=== PATIENT | female | born 1985 | race Caucasian/White ===

== ENCOUNTER 2024-04-19 11:42 | Emergency (ER) | payer OTHER, SELFPAY ==
--- NOTE | 2024-04-19 11:46 | ED.URI ---
HPI - URI/Sore Throat General Chief Complaint: Upper Respiratory Infection Stated Complaint: throat pain Time Seen by Provider: 04/19/24 11:47 Source: patient Mode of arrival: ambulatory Limitations: no limitations History of Present Illness HPI Narrative: Jesusita is a 38-year-old female patient presenting to the clinic today with complaints of a sore swollen area to the left side of her anterior neck. She reports symptoms have been going on for approximately 2-3 days. No fevers, chills, or body aches. States that it seems as though the pain is radiating into her jaw to the left ear. No history of TMJ. Denies any dental pain. MD elicited complaint: sore throat and nasal congestion Related Data Home Medications ?Medication ?Instructions ?Recorded ?Confirmed ?Last Taken ?Type Bovey bergamia PO 02/18/24 02/18/24 Unknown History Full Adarsh Fish OIl PO 02/18/24 02/18/24 Unknown History Sibiotica K-97 PO 02/18/24 02/18/24 Unknown History Zoyava chloe-inositol/ D-chiro PO 02/18/24 02/18/24 Unknown History inositol cholecalciferol (vitamin D3) 25 25 mcg PO DAILY 02/18/24 04/19/24 Unknown History mcg (1,000 unit) capsule cimicifuga racemosa See Rx Instructions PO .COMPLEX 02/18/24 02/18/24 Unknown History levothyroxine 25 mcg tablet 25 mcg PO DAILY 02/18/24 04/19/24 Unknown History loratadine 10 mg tablet (Claritin) 10 mg PO DAILY 02/18/24 04/19/24 Unknown History melatonin 3 mg capsule 3 mg PO QHS 02/18/24 04/19/24 Unknown History multivitamin 1 tablet PO DAILY 02/18/24 04/19/24 Unknown History bupropion HCl 150 mg 24 hr tablet, 150 mg PO DAILY 04/19/24 04/19/24 Unknown History extended release Allergies Allergy/AdvReac Type Severity Reaction Status Date / Time metformin Allergy Severe Diarrhea Verified 04/19/24 11:48 Review of Systems Review of Systems: Pertinent positives per HPI. Patient denies any fever, chills, rash, headache, visual changes, dizziness, cough, shortness of breath, chest pain, palpitations, nausea, vomiting, diarrhea, constipation, abdominal pain, or any urinary issues. PMFSH Past Medical History Medical History Celiac disease Depression with suicidal ideation ADHD Polycystic ovarian disease Chronic post-traumatic stress disorder (PTSD) Headache, migraine, intractable Asthma Anxiety Anemia Allergies Surgical History Surgical History [place] teeth removed H/O colonoscopy 2003 Family History Family History Mother Depression Anxiety Heart problem Father Asthma Diabetes mellitus Sibling Asthma Grandparent Anxiety Depression Heart problem Cancer Grandparent Diabetes mellitus Grandparent Diabetes mellitus Social History Social History Smoking status: Never smoker Second hand tobacco smoke exposure: Yes Alcohol intake: current Alcohol use details: rarely Substance use: never Do You Feel Safe in your Home?: Yes Lack of Transportation: No Lack of Food: Never True Current Housing: I Have Housing Concerned About Future Housing: No Difficulty Paying Gas/Electric Bills: No Difficulty Paying for Meds: No Currently Unemployed: No Education: Bachelor's Degree Difficulty w/ Childcare or Family Care: No Living arrangements: with family Occupation/Education: occupation Gender identity (if verbalized by the patient): Female Sexual Orientation (if Verbalized by the Patient): Straight or Heterosexual Agree to blood products: Yes Comments At the time of my signature, I reviewed and agree with the nursing past medical, surgical, social, and family history. There is no relevant family history pertinent to the patient complaint. Exam Narrative: General: Well-developed, morbidly obese, in no apparent distress Head: Normocephalic, atraumatic Eyes: Pupils equally round and reactive to light bilaterally, EOM intact, sclera and conjunctive clear, no discharge, lids normal Ears: TMs intact and clear, ear canals clear, no drainage, grossly hearing normal. Nose: Nares patent, no discharge, no inflammation, no sinus tenderness. Mouth: Oral pharynx mildly red without lesions or masses, good dentition, MMM. No tenderness over the mandible-no swelling, no tenderness over the TMJ-no swelling or crepitus Neck: Supple, trachea midline, left enlargement of anterior with cervical nodes with tenderness to palpation, no thyroid masses or goiter palpable. Cardio: Regular rate and rhythm, s1 and s2 normal, no murmur appreciated. Resp: Clear to auscultation bilaterally, no rhonchi, rales, wheezing or rubs Course Course Emergency Course: Portions of this record may have been created with voice recognition software. Level of Care: Express Care Visit Vital Signs Vital signs: Vital Signs Temperature 36.2 C L 04/19/24 11:52 Pulse Rate 68 04/19/24 11:52 Respiratory Rate 16 04/19/24 11:52 Blood Pressure 119/68 04/19/24 11:52 Pulse Oximetry 99 04/19/24 11:52 Oxygen Delivery Room Air 04/19/24 11:52 Temperature 36.2 C L 04/19/24 11:52 Pulse Rate 68 04/19/24 11:52 Respiratory Rate 16 04/19/24 11:52 Blood Pressure 119/68 04/19/24 11:52 Pulse Oximetry 99 04/19/24 11:52 Oxygen Delivery Room Air 04/19/24 11:52 Vital signs reviewed MDM - URI/Sore Throat MDM Narrative Medical decision making narrative: At the time of visit patient is resting comfortably on the exam table. Patient appears to be nontoxic. Labs: Strep test was obtained and negative in the clinic today. We will send strep for culture. Plan: I suspect patient has acute left lymphadenopathy of the anterior cervical region. No sign of dental infection, ear infection, and strep test was negative. We will send strep for culture. She denies any fevers, chills, or body aches. Supportive measures were discussed with the patient and they voiced understanding discharge instructions and agrees to treatment plan. Return precautions reviewed Differential Diagnosis Differential diagnosis: Likely upper respiratory infection, otitis media, sinusitis, viral infection, bronchitis, influenza, pharyngitis and other (COVID) Lab Data Labs: Lab Results 04/19/24 Range/Units 12:08 POC Grp A Strep Screen Negative (Negative) Discharge Plan Discharge Clinical Impression: Lymphadenopathy of left cervical region Patient Disposition: Home, Self-Care Condition: Stable Instructions: Antibiotic Form, Lymphadenopathy (ED) Additional Instructions: Strep test was negative in the clinic today. We will send strep for culture. Increase fluids and stay well hydrated Tylenol/motrin for pain/fever May apply cool or warm compresses affected area to help alleviate pain Go to the ED if you develop a worsening in your condition- high fever not controlled by Tylenol or Motrin, dehydration, weakness, lethargy, worsening of swelling, increase in pain, shortness of breath, or chest pain. Follow up with your PCP in 3-5 days if symptoms persist. Patient Language: Somali Prescriptions: No Action bupropion HCl 150 mg tablet extended release 24 hr 150 mg PO DAILY levothyroxine 25 mcg tablet 25 mcg PO DAILY loratadine [Claritin] 10 mg tablet 10 mg PO DAILY cimicifuga racemosa See Rx Instructions PO .COMPLEX Rx Instructions: 300mg PRN orally; PCOS & Sugar Cravings multivitamin Tablet 1 tablet PO DAILY Bovey bergamia PO Rx Instructions: bergamot 500mg, BioPerine 2.5mg for PCOS & Insulin Resistance with water or herbal tea at dinner time. Full Adarsh Fish OIl PO Rx Instructions: 2500mg QHS melatonin 3 mg capsule 3 mg PO QHS Sibiotica K-97 PO Rx Instructions: 15 billion x 2 tabs daily Zoyava chloe-inositol/ D-chiro inositol PO Rx Instructions: 750mg/50mg cholecalciferol (vitamin D3) 25 mcg (1,000 unit) capsule 25 mcg PO DAILY montelukast 10 mg tablet See Rx Instructions .ROUTE .COMPLEX Qty: 30 0RF Dose Instruction: TAKE 1 TABLET BY MOUTH DAILY Rx Instructions: TAKE 1 TABLET BY MOUTH DAILY Follow-up/Referrals: Alexandra Kaur NURSE STAFF INDUSTRIAL [Primary Care Provider] - Time of Disposition: 12:10 Quality NIHSS Nursing Documentation ED NIHSS nursing documentation: reviewed/agree
[2024-04-19 11:52] VITALS: BP 119/68; PULSE 68; RESP 16; TEMP 36.2; O2SAT 99
[2024-04-19 12:10] LABS: EDSTREPNEGPOS1 Negative (Negative)
--- OUTSIDE RECORDS SUMMARY | 2024-04-26 06:45 | XMS_ITS ---
Author Organization [facility] [employer] [facility] Address [facility] [address] [facility] [address] [place] [address] Care Team Providers Care Psychiatric Orderly Name Role Phone Alexandra Kaur APN Primary Care Provider Unavailab Tremaine Brown Unavailable [phone] Medications Medication SIG (Take, Route, Frequency, Duration) Notes Start Date End Date Status Levothyroxine Sodium 25 MCG TAKE 1 TABLE T BY MOUTH DAILY BEFORE MEAL Oral for 30 Days Active Montelukast Sodium 10 MG TAKE 1 TABLET B Y MOUTH DAILY Oral for 30 Days Active buPROPion HCl ER (XL) 150 MG TAKE 1 TABL ET BY MOUTH EVERY DAY Oral Once a day for 90 days Active Multivitamin Active Albuterol Sulfate HFA 108 (90 Base) MCG/ACT INHALE 2 PUFFS BY MOUTH FOUR TIMES DAILY NEEDED FOR SHORTNESS OF BREATH Inhalation for 25 Days Active Social History Sex Assigned At : Social History Observation Description Sex Assigned At Female Encounters Encounter Location Date Provider [facility] [address] [place] [address] [address] [place] [address] 03/29/2024 Tremaine Kidd Plan Of Treatment No Information Progress Notes * DON AREVALODOB: [birth year] (38 yo F)Acc No.[id number]:03/29/2024 Patient:?DON AREVALO Provider:KIM Graves :1985???Age:38 Y???Sex:Female D ate:03/29/2024 Phone: Address:[address] [place] [address] Pcp:Alexandra Kaur APN Subjective: * Chief Complaints: * ??? * Medical History:? * Medications:?Taking buPROPio n HCl ER (XL) 150 MG Tablet Extended Release 24 Hour TAKE 1 TABLET BY MOUTH EVERY DAY Oral Once a day , Taking Multivitamin , Taking Albuterol Sulfate HFA 108 (90 Base) MCG/ACT Aerosol Solution INHALE 2 PUFFS BY MOUTH FOUR TIMES DAILY NEEDED FOR SHORTNESS OF BREATH Inhalation , Taking Levothyroxine Sodium 25 MCG Tablet TAKE 1 TABLET BY MOUTH DAILY BEFORE MEAL Oral , Taking Montelukast Sodium 10 MG Tablet TAKE 1 TABLET BY MOUTH DAILY Oral Objective: * Vitals:? Assessment: Plan: * Treatment: * Billing Information: * Visit Code:? * Procedure Codes:? * Electronic signature of KIM Thompson on 04/26/2024 at 06:45 AM FEED IN WORKER Sign off status: Pending * Provider:?KIM Rodriguez Date:?03/29 Generated for Amber zamarripa/Mohsen/Thad on:?04/26/2024 06:45 AM FEED IN WORKER
--- OUTSIDE RECORDS SUMMARY | 2024-04-26 06:46 | XMS_ITS | Patient Health Record ---
Author Organization [facility] [employer] Address [address] [facility] [address] [place] [address] Care Team Providers Care Software Qa Manager Name Role Phone Alexandra Kaur APN Primary Care Provider Unavailab Tremaine Brown Unavailable [phone] Allergies Allergen (clinical drug ingredient) Drug/Non Drug Allergy documented on EMR Reaction Allergy Type Onset Date Status Gluten glutin (uncoded) Unknown Allergy Act miguelangel metformin Metformin diarrhea Drug Allergy Active Reason For Referral No Information Medications Medication SIG (Take, Route, Frequency, Duration) [...] Inhalation for 25 Days Active Social History Tobacco Use: Social History Observation Description Date Details (start date - stop date) Never Smoker NA - NA Sex Assigned At : Social History Observation Description Sex Assigned At Female Tobacco Control (Standard) Question Answer Notes Tobacco use: Nonsmoker AUDIT-C (Standard) Question Answer Notes Points 0 Interpretation Negative Did you have a drink contain ing alcohol in the past year? Yes How often did you have six o r more drinks on one occasion in the past year? Never (0 point) How many drinks did you have on a typical day when you were drinking in the past year? 1 or 2 drinks (0 point) How often did you have a dri nk containing alcohol in the past year? Monthly or less (1 point) Problems Problem Type SNOMED Code ICD Code Onset Dates Problem Status W/U Status Risk Notes Problem 46811187 Severe episode of recurrent major depressive disorder, without psychotic features (F33.2) Active confirmed Problem 77441616 MDD (major depressive disorder), recurrent episode, moderate (F33.1) Active confirmed Problem 74737237 Anxiety (F41.9) Active confirmed Problem 7351695 Passive suicidal ideations (R45.851) Active confirmed Vital Signs Heart Rate 77 /min 02/28/2024 Blood pressure diastolic 74 mm Hg 02/28/2024 Weight-kg 116.3 kg 02/28/2024 Blood pressure systolic 113 mm Hg 02/28/2024 Weight 256.4 lbs 02/28/2024 Encounters Encounter Location Date Provider Diagnosis [employer] [address] [place] [address] 02/28/2024 Tremaine Clubb Passive suicidal ideations R45.851 ; Severe episode of recurrent major depressive disorder, without psychotic features F33.2 and Anxiety F41.9 [employer] [address] [place] [address] 03/29/2024 Tremaine Clubb Assessments Encounter Date Diagnosis (ICD Code) Assessment Notes Treatment Notes Treatment Clinical Notes Section Notes 02/28/2024 Severe episode of recurrent major depressive disorder, without psychotic features (ICD-10 - F33.2) 1. ADHD, Anxiety, and Depression - Plan: Restart bupropion 150 mg daily. Schedule a follow-up appointment in one month to assess stability. Encourage continuation of therapy sessions every 2-3 weeks with Noelle Paige at [facility] in [place], focusing on cognitive behavioral therapy. Provide crisis hotline number (418) and ensure safety plan is in place, including two people to call if experiencing suicidal thoughts. Recommend securing firearms and ammunition separately or removing them from the home temporarily. 2. PTSD with complex trauma - Plan: Encourage continuation of therapy sessions and discuss the possibility of incorporating EMDR therapy if deemed appropriate by the therapist. 02/28/2024 Passive suicidal ideations (ICD-10 - R45.851) 1. ADHD, Anxiety, and Depression - Plan: Restart bupropion 150 mg daily. Schedule a follow-up appointment in one month to assess stability. Encourage continuation of therapy sessions every 2-3 weeks with Noelle Paige [facility], focusing on cognitive behavioral therapy. Provide crisis hotline number (988) and ensure safety plan is in place, including two people to call if experiencing suicidal thoughts. Recommend securing firearms and ammunition separately or removing them from the home temporarily. 2. PTSD with complex trauma - Plan: Encourage continuation of therapy sessions and discuss the possibility of incorporating EMDR therapy if deemed appropriate by the therapist. 02/28/2024 Anxiety (ICD-10 - F41.9) 1. ADHD, Anxiety, and Depression - Plan: Restart bupropion 150 mg daily. Schedule a follow-up appointment in one month to assess stability. Encourage continuation of therapy sessions every 2-3 weeks with Noelle Paige [facility], focusing on cognitive behavioral therapy. Provide crisis hotline number (988) and ensure safety plan is in place, including two people to call if experiencing suicidal thoughts. Recommend securing firearms and ammunition separately or removing them from the home temporarily. 2. PTSD with complex trauma - Plan: Encourage continuation of therapy sessions and discuss the possibility of incorporating EMDR therapy if deemed appropriate by the therapist. 02/28/2024 Other Learning About Depression Screening material was printed Assessment and plan reviewed with patient Call for problems with medication, side effects or need for dosage change Compliance issues reviewed Discussed the risks/benefits of this medication Discussed medication side effects Return if symptoms worsen Treatment options reviewed. discussed that it can take weeks to see full therapeutic effects of psychotropic medications. discussed when to seek emergency services. discussed crisis prevention hotline 988. Learning About Depression Screening material was printed 1. ADHD, Anxiety, and Depression - Plan: Restart bupropion 150 mg daily. Schedule a follow-up appointment in one month to assess stability. Encourage continuation of therapy sessions every 2-3 weeks with Noelle Paige [facility], focusing on cognitive behavioral therapy. Provide crisis hotline number (988) and ensure safety plan is in place, including two people to call if experiencing suicidal thoughts. Recommend securing firearms and ammunition separately or removing them from the home temporarily. 2. PTSD with complex trauma - Plan: Encourage continuation of therapy sessions and discuss the possibility of incorporating EMDR therapy if deemed appropriate by the therapist. Plan Of Treatment Pending Test Test Name Order Date UDT 02/28/2024 Insurance Providers Payer Name Payer Address Payer Phone Subscriber Number Group Number Insured Name Patient Relationship to Insured Coverage Start Date Coverage End Date [facility] [address] [place] [address] [phone] [id number] DON AREVALO Self - patient is the insured Medical (General) History Medical History History ICD Code Past Psychiatric History: PTSD abdominal aortic aneurysm: No atrial fibrillation: No chronic fatigue syndrome: No essential tremor: No hyperlipidemia: Yes hypertension: No Parkinson's disease: No restless leg syndrome: No stroke: No subdural hematoma: No type 1 diabetes mellitus: No type 2 diabetes mellitus: No vitamin B12 deficiency: Yes vitamin D deficiency: Yes Polycystic Ovary Syndrome asthma - mild persistent Celiac disease Surgical History Surgery Date(Month/Year) wisdom teeth extraction 2006
--- OUTSIDE RECORDS SUMMARY | 2024-04-26 06:46 | XMS_ITS ---
Patient Encounters Created on: September 08, 2023 CatrachitaBay kendallya : 1985 Sex: Female Author Organization [facility] [employer]. Address [address] [place] [address] Social History Section No Social History Data Procedures No Procedures Data
--- OUTSIDE RECORDS SUMMARY | 2024-04-26 06:46 | XMS_ITS ---
Author Organization [facility] [address] [place] [facility] Address [employer] [address] [address] Care Team Providers Care Product/Device Technologist Name Role Phone Alexandra Kaur APN Primary Care Provider UnavailTremaine Alas Unavailable [phone] REASON FOR VISIT Appt Social History Sex Assigned At : Social History Observation Description Sex Assigned At Female Encounters Encounter Location Date Provider Diagnosis [address] [address] 03/29/2024 Tremaine Kidd Plan Of Treatment No Information Progress Notes * HANNADON VASQUEZDOB: 8 (38 yo F)Acc No.[id number]:03/29/2024 Patient:?DON AREVALO :1985???Age:38 Y???Sex:Female Phone: Address:[address] [place] [id number] * true * Date:? Generated for Catalinai dallin/Mohsen/eTransmitting on:?04/26/2024 06:45 AM TRANSPORTATION AGENT
--- OUTSIDE RECORDS SUMMARY | 2024-04-26 06:46 | XMS_ITS ---
Patient Encounters Created on: October 09, 2023 Kayce Foster : 1985 Sex: Female Author Name Sandy Tobar Address [address] [address] [facility]. Address [address] [facility] [address] [place] [address]
== END 2024-04-19 12:17 | disposition home or self-care (01) ==
PROVIDERS: Emergency Provider Nurse Practitioner Family; PCP Nurse Practitioner
DX: R59.0 Localized enlarged lymph nodes (principal); K90.0 Celiac disease; J45.909 Unspecified asthma, uncomplicated; F41.8 Other specified anxiety disorders
CPT/HCPCS: 87081; 87880; 99213; G0463

== ENCOUNTER 2024-05-06 19:14 | Emergency (ER) | payer OTHER, SELFPAY ==
--- NOTE | 2024-05-06 19:21 | ED_ITS ---
HPI - URI/Sore Throat General Chief Complaint: Upper Respiratory Infection Stated Complaint: cough Time Seen by Provider: 05/06/24 19:20 Source: patient Mode of arrival: ambulatory Limitations: no limitations History of Present Illness HPI Narrative: Patient is a 38-year-old female who presents with over 1 week of productive cough. Patient has a new foster child became them 2 weeks ago getting over RSV. Patient has been taking Sudafed Mucinex. States all those symptoms have resolved except for the cough and laryngitis. Patient has history of asthma and has having coughing fits. Patient reports loss of sleep due to coughing. Denies any fever, chills, nausea, vomiting, diarrhea. Related Data Home Medications ?Medication ?Instructions ?Recorded ?Confirmed ?Last Taken ?Type Ennis bergamia PO 02/18/24 02/18/24 Unknown History Full Adarsh Fish OIl PO 02/18/24 02/18/24 Unknown History Sibiotica K-97 PO 02/18/24 02/18/24 Unknown History Zoyava chloe-inositol/ D-chiro PO 02/18/24 02/18/24 Unknown History inositol cholecalciferol (vitamin D3) 25 25 mcg PO DAILY 02/18/24 04/19/24 Unknown History mcg (1,000 unit) capsule cimicifuga racemosa See Rx Instructions PO .COMPLEX 02/18/24 02/18/24 Unknown History levothyroxine 25 mcg tablet 25 mcg PO DAILY 02/18/24 04/19/24 Unknown History melatonin 3 mg capsule 3 mg PO QHS 02/18/24 04/19/24 Unknown History multivitamin 1 tablet PO DAILY 02/18/24 04/19/24 Unknown History bupropion HCl 150 mg 24 hr tablet, 150 mg PO DAILY 04/19/24 04/19/24 Unknown History extended release albuterol sulfate 90 mcg/actuation inhalation 05/06/24 Unknown History aerosol inhaler Allergies Allergy/AdvReac Type Severity Reaction Status Date / Time metformin AdvReac Intermediate Diarrhea Verified 05/06/24 19:25 Review of Systems Review of Systems: All systems reviewed & are unremarkable except as noted in HPI and below Constitutional: Constitutional: Denies body ache(s), Denies chills, Denies fatigue, Denies fever(s), Denies headache(s), Denies malaise and Denies weakness Eyes: Eyes: Denies blurry vision, Denies itchy eyes and Denies loss of vision ENT: Denies otalgia, Denies headache(s), Reports hoarseness, Denies nasal congestion, Denies sinus pain and Denies sore throat Cardiovascular: Cardiovascular: Denies chest pain, Denies irregular heart rhythm and Denies dyspnea Respiratory: Respiratory: Reports cough and Denies dyspnea Gastrointestinal: Gastrointestinal: Denies abdominal pain, Denies diarrhea, Denies nausea and Denies vomiting Musculoskeletal: Musculoskeletal: Denies back pain, Denies myalgias and Denies arthralgias Integumentary/Breasts: Skin/Breast: Denies pruritus and Denies rash Neurologic: Denies headache(s), Denies loss of vision and Denies weakness Psychiatric: Psychiatric: Reports no additional psychiatric complaints Endocrine: Endocrine: Denies fatigue Allergic/Immunologic: Allergic/Immunologic: Denies itchy eyes PMFSH Past Medical History Medical History Celiac disease Depression with suicidal ideation ADHD Polycystic ovarian disease Chronic post-traumatic stress disorder (PTSD) Headache, migraine, intractable Asthma Anxiety Anemia Allergies Surgical History Surgical History [place] teeth removed H/O colonoscopy 2003 Family History Family History Mother Depression Anxiety Heart problem Father Asthma Diabetes mellitus Sibling Asthma Grandparent Anxiety Depression Heart problem Cancer Grandparent Diabetes mellitus Grandparent Diabetes mellitus Social History Social History Smoking status: Never smoker Second hand tobacco smoke exposure: Yes Alcohol intake: current Alcohol use details: rarely Substance use: never Do You Feel Safe in your Home?: Yes Lack of Transportation: No Lack of Food: Never True Current Housing: I Have Housing Concerned About Future Housing: No Difficulty Paying Gas/Electric Bills: No Difficulty Paying for Meds: No Currently Unemployed: No Education: Bachelor's Degree Difficulty w/ Childcare or Family Care: No Living arrangements: with family Occupation/Education: occupation Gender identity (if verbalized by the patient): Female Sexual Orientation (if Verbalized by the Patient): Straight or Heterosexual Agree to blood products: Yes Comments At time of signature, agree with nursing past medical, surgical, social and family history. There is no relevant family history pertinent to the presenting complaint. Exam Const: General: cooperative, healthy appearing, comfortable, no acute distress and well nourished Nutritional Appearance: well nourished Orientation/consciousness: patient oriented x3 Limitations: no limitations HENMT: Head: normal to inspection, normocephalic and atraumatic Ears: hearing grossly normal bilaterally, external ears normal, TM's normal bilaterally, EAC's normal and no periauricular adenopathy Face/Nose/Sinus: Normal external nose present, Abnormal mucous membranes and turbinates present erythematous bilateral and diffuse, normal facial exam, sinuses nontender and face symmetric Face and sinus: normal facial exam, sinuses nontender and face symmetric Mouth: Yes Normal oral and palatal mucosa present, Yes lip normal, Yes tongue normal, Yes Normal salivary glands and ducts present, Yes oropharynx normal and Yes moist mucous membranes Teeth and gingiva: dentition normal Throat: posterior oropharynx normal, tonsils normal and uvula midline Eyes: General: appearance normal, both eyes and all related structures Alignment and Position: alignment normal and position normal Periorbital: periorbital findings normal Eyelids: eyelids normal Pupils: Equal, round and reactive pupils present Neck: Neck: normal visual inspection, full ROM, no lymphadenopathy and supple Chest: Chest palpation & inspection: normal inspection of the chest and normal palpation of entire chest wall Resp: Effort & Inspection: normal respiratory effort, able to speak in complete sentences and Actively coughing actively coughing Auscultation: clear to auscultation bilaterally, no crackles, no rales, no rhonchi and no wheezes Cardio: Rate: regular rate Rhythm: regular rhythm Heart sounds: S1 normal heart sound present and S2 normal heart sound present GI: Inspection: normal to inspection Skin: General skin exam: normal color and no rashes or lesions noted Neuro: General: patient oriented x3 and moves all extremities Cranial nerves: Yes Equal, round and reactive pupils present Speech: normal speech Gait exam (Neuro): Normal gait present Extrem: General: normal to inspection, full ROM and no edema Psych: Appearance: grossly normal and well kempt Mental Status: mental status grossly normal Speech and movement: Normal speech and movement present Affect: normal affect Attitude: cooperative Thought process: Normal thought process present Course Course Emergency Course: Discharge instructions reviewed with patient, as well as provided in writing per nursing staff. The instructions also include specific and strict return/GO TO THE ER as well as f/u information. All questions have been answered, and the patient deny any further questions with discharge and discharge plan. Portions of this record may have been created with voice recognition software Level of Care: Express Care Visit Vital Signs Vital signs: Vital Signs Temperature 36.5 C 05/06/24 19:23 Pulse Rate 72 05/06/24 19:23 Respiratory Rate 18 05/06/24 19:23 Blood Pressure 128/70 05/06/24 19:23 Pulse Oximetry 99 05/06/24 19:23 Oxygen Delivery Room Air 05/06/24 19:23 Temperature 36.5 C 05/06/24 19:23 Pulse Rate 72 05/06/24 19:23 Respiratory Rate 18 05/06/24 19:23 Blood Pressure 128/70 05/06/24 19:23 Pulse Oximetry 99 05/06/24 19:23 Oxygen Delivery Room Air 05/06/24 19:23 Reviewed MDM - URI/Sore Throat MDM Narrative Medical decision making narrative: Pt well hydrated appearing, in no respiratory distress, hemodynamically stable. Recommend supportive care. The patient is stable at time of discharge the clinical impression was discussed and the patient was given the opportunity to ask questions, which were addressed as completely as possible given the information available at present. Anticipatory guidance and return to care precautions were discussed and the importance of primary care follow-up was stressed and encouraged. The patient voiced understanding of the plan, indications to return, and the need for follow-up. Differential diagnosis considered: Eaton virus, strep pharyngitis, allergic rhinitis, upper respiratory tract infection, sinusitis, rhinosinusitis, n asopharyngitis. viral pharyngitis, otitis media, otitis externa, otitis effusion, foreign body, cerumen impaction, viral syndrome, and influenza.? Exam findings show no acute concerns or changes; patient is non-toxic appearing and is in no distress.? Patient is appropriate for outpatient treatment and follow- up.? Medical Records Attestation: I reviewed the patient's medical records. Discharge Plan Discharge Clinical Impression: Acute purulent bronchitis Patient Disposition: Home, Self-Care Condition: Stable Instructions: Acute Bronchitis (ED) Additional Instructions: Take antibiotic as prescribed. Take steroids in the morning with food. Use Tessalon Perles as needed for cough. Other symptomatic treatments include: -Alternate Tylenol and Motrin per package directions for fever or pain. -Antihistamine medication such as Benadryl at night and Zyrtec/Claritin/Yane during the day can help improve symptoms. -Use Flonase twice a day for 5 days then daily to help reduce the inflammation and dry up your sinuses. -You can also use Sudafed or Mucinex. Be sure to drink plenty of water with these medications at least 8 ounces with every dose and it is important to drink 8 to 10 glasses of water per day. Water is a natural decongestant -Eat and drink things that are easy to swallow, like tea or soup, or popsicles. -Oral rinses such as: Salt water gargles and/or may use topical anesthetic (eg. Chloraseptic spray) or lozenges to relieve dryness or throat pain). -Frequent hand washing or hand packager or packer and weigher is one of the best ways to prevent spread of infection. -Using a vaporizer or humidifier at night will also help thin secretions and help with coughing up phlegm. -Follow up with primary care provider in 3-5 days if condition is not improving - For new or worsening symptoms go directly to the nearest ER Patient Language: Angolan Prescriptions: New prednisone 20 mg tablet 40 mg PO DAILY 5 Days Qty: 10 0RF amoxicillin 875 mg tablet 875 mg PO Q12H 7 Days Qty: 14 0RF benzonatate 100 mg capsule 100 mg PO BID PRN (Reason: cough) Qty: 14 0RF No Action bupropion HCl 150 mg tablet extended release 24 hr 150 mg PO DAILY albuterol sulfate 90 mcg/actuation HFA aerosol inhaler INHALATION levothyroxine 25 mcg tablet 25 mcg PO DAILY cimicifuga racemosa See Rx Instructions PO .COMPLEX Rx Instructions: 300mg PRN orally; PCOS & Sugar Cravings multivitamin Tablet 1 tablet PO DAILY Ennis bergamia PO Rx Instructions: bergamot 500mg, BioPerine 2.5mg for PCOS & Insulin Resistance with water or herbal tea at dinner time. Full Adarsh Fish OIl PO Rx Instructions: 2500mg QHS melatonin 3 mg capsule 3 mg PO QHS Sibiotica K-97 PO Rx Instructions: 15 billion x 2 tabs daily Zoyava chloe-inositol/ D-chiro inositol PO Rx Instructions: 750mg/50mg cholecalciferol (vitamin D3) 25 mcg (1,000 unit) capsule 25 mcg PO DAILY montelukast 10 mg tablet See Rx Instructions .ROUTE .COMPLEX Qty: 30 0RF Dose Instruction: TAKE 1 TABLET BY MOUTH DAILY Rx Instructions: TAKE 1 TABLET BY MOUTH DAILY Follow-up/Referrals: Alexandra Kaur PRINTS AND DRAWINGS CURATOR [Primary Care Provider] - 3 Days Time of Disposition: 19:33
[2024-05-06 19:23] VITALS: BP 128/70; PULSE 72; RESP 18; TEMP 36.5; O2SAT 99
--- OUTSIDE RECORDS SUMMARY | 2024-05-11 09:29 | XMS_ITS ---
Author Organization [facility] [employer] [facility] Address [facility] [address] [facility] [address] [place] [address] Care Team Providers Care Manager Mass Name Role Phone Alexandra Kaur APN Primary Care Provider Tremaine Palmer [phone] REASON FOR VISIT Waiting for call back Social History Sex Assigned At : Social History Observation Description Sex Assigned At Female Encounters Encounter Location Date Provider Diagnosis [facility] [address] [facility] [address] [place] [address] 05/04/2024 Tremaine Kidd Plan Of Treatment No Information Progress Notes * DON AREVALODOB: 8 (38 yo F)Acc No.[id number]:05/04/2024 Patient:?DNO AREVALO :1985???Age:38 Y???Sex:Female Phone: Address:[address] [place] [id number] * true * Date:? Generated for Catalinai dallin/Laureeng/eTransmitting on:?05/11/2024 09:28 AM STORE HOST
--- OUTSIDE RECORDS SUMMARY | 2024-05-11 09:29 | XMS_ITS | Patient Health Record ---
Author Organization [facility] [employer] Address [address] [facility] [address] [place] [address] Care Team Providers Care Pre Owned Sales Consultant Name Role Phone Alexandra Kaur APN Primary Care Provider Unavailab Tremaine Brown Unavailable [phone] Allergies Allergen (clinical drug ingredient) Drug/Non Drug [...] Problem Status W/U Status Risk Notes Problem 98562194 Severe episode of recurrent major depressive disorder, without psychotic features (F33.2) Active confirmed Problem 31692371 MDD (major depressive disorder), recurrent episode, moderate (F33.1) Active confirmed Problem 39432197 Anxiety (F41.9) Active confirmed Problem 3232832 Passive suicidal ideations (R45.851) Active confirmed Vital Signs Heart Rate 77 /min 02/28/2024 Blood pressure diastolic 74 mm Hg 02/28/2024 Weight-kg 116.3 kg 02/28/2024 Blood pressure systolic 113 mm Hg 02/28/2024 Weight 256.4 lbs 02/28/2024 Encounters Encounter Location Date Provider Diagnosis [facility] [employer] [address] [facility] [address] [place] [address] 02/28/2024 Tremaine Club Passive suicidal ideations R45.851 ; Severe episode of recurrent major depressive disorder, without psychotic features F33.2 and Anxiety F41.9 [facility] [address] [facility] [address] [place] [address] 03/29/2024 Tremaine Clubb [facility] [employer] [address] [facility] [address] [place] [address] 05/04/2024 Tremaine [place] Assessments Encounter Date Diagnosis (ICD Code) Assessment Notes Treatment Notes Treatment Clinical Notes Section Notes 02/28/2024 Severe episode of recurrent major depressive disorder, without psychotic features (ICD-10 - F33.2) 1. ADHD, Anxiety, and Depression - Plan: Restart bupropion 150 mg daily. Schedule a follow-up appointment in one month to assess stability. Encourage continuation of therapy sessions every 2-3 weeks with Noelle Paige at [facility] in [place], focusing on cognitive behavioral therapy. Provide crisis hotline number (301) and ensure safety plan is in place, [...] therapy sessions every 2-3 weeks with Noelle gutierrez [facility], focusing on cognitive behavioral therapy. Provide crisis [...] sessions every 2-3 weeks with Noelle Paige [facility], focusing on cognitive behavioral therapy. Provide crisis [...] of therapy sessions every 2-3 weeks with Noelel gutierrez [facility], focusing on cognitive behavioral therapy. Provide crisis [...] Insured Coverage Start Date Coverage End Date [employer] [address] [place] [address] [id number] IRINA DENYSYA Self - patient is the insured Medical [...]
--- OUTSIDE RECORDS SUMMARY | 2024-05-11 09:29 | XMS_ITS ---
Author Organization [facility] [employer] [facility] Address [facility] [address] [facility] [address] [place] [address] Care Team Providers Care Plumbing Warehouse Helper Name Role Phone Alexandra Kaur APN Primary Care Provider Unavailab Tremaine Brown Unavailable [phone] Medications Medication SIG (Take, Route, Frequency, Duration) [...] Female Encounters Encounter Location Date Provider Diagnosis [facility] [address] [place] [address] [address] [facility] [address] [place] [address] 03/29/2024 Tremaine Kidd Plan Of Treatment No Information Progress Notes * DON AREVALODOB: [birth year] (38 yo F)Acc No.[id number]:03/29/2024 Patient:?DON AREVALO Provider:KIM Graves :1985???Age:38 Y???Sex:Female D ate:03/29/2024 Phone: Address:[address] [place] [address] Pcp:Alexandra Kaur APN Subjective: * Chief Complaints: [...] * Electronic signature of KIM Thompson on 05/11/2024 at 09:28 AM SEASONAL RETAIL MERCHANDISER Sign off status: Pending * Provider:?KIM Rodriguez Date:?03/29 Generated for Amber zamarripa/Mohsen/Thad on:?05/11/2024 09:28 AM SEASONAL RETAIL MERCHANDISER
--- OUTSIDE RECORDS SUMMARY | 2024-05-11 09:29 | XMS_ITS ---
Author Organization [facility] [employer] [facility] Address [facility] [address] [address] Care Team Providers Care Security System Sales Consultant Name Role Phone Alexandra Kaur APN Primary Care Provider UnavailTremaine Alas Unavailable [phone] REASON FOR VISIT Appt Social History Sex Assigned At : Social History Observation Description Sex Assigned At Female Encounters Encounter Location Date Provider Diagnosis [address] [address] 03/29/2024 Tremaine Kidd Plan Of Treatment No Information Progress Notes * HANNADON VASQUEZDOB: 8 (38 yo F)Acc No.[id number]:03/29/2024 Patient:?DON AREVALO :1985???Age:38 Y???Sex:Female Phone: Address:[address] [place] [phone] * true * Date:? Generated for Catalinai dallin/Mohsen/eTransmitting on:?05/11/2024 09:29 AM SPOUTER
== END 2024-05-06 19:36 | disposition home or self-care (01) ==
PROVIDERS: Emergency Provider Nurse Practitioner Family; PCP Nurse Practitioner
DX: J20.9 Acute bronchitis, unspecified (principal); K90.0 Celiac disease; E28.2 Polycystic ovarian syndrome; J45.909 Unspecified asthma, uncomplicated; F41.9 Anxiety disorder, unspecified; F32.A Depression, unspecified
CPT/HCPCS: 99213; G0463

== ENCOUNTER 2024-07-01 08:04 | Emergency (ER) | payer OTHER, SELFPAY ==
--- NOTE | ~2024-07-01 | XR_ITS ---
Clinical Indication: Cough PA and lateral views of the chest: Comparison: None Findings: The lungs are clear, without evidence of focal consolidation or pleural effusion. Cardiome diastinal silhouette is within normal limits. Bones and soft tissues are unremarkable. Impression: Normal chest. Reviewed, dictated and finalized at location . Impression: Normal chest.
--- OUTSIDE RECORDS SUMMARY | 2024-07-01 08:06 | XMS_ITS ---
Author Organization [facility] [employer] [facility] Address [address] [place] [address] [address] [address] Care Team Providers Care Communications Station Manager Name Role Phone Alexandra Kaur APN Primary Care Provider UnavailTremaine Alas Unavailable [phone] REASON FOR VISIT Appt Social History Sex Assigned At : Social History Observation Description Sex Assigned At Female Encounters Encounter Location Date Provider Diagnosis [address] [address] 03/29/2024 Tremaine Kidd Plan Of Treatment No Information Progress Notes * IRINA DONDOB: 8 (38 yo F)Acc No.[id number]:03/29/2024 Patient: DON SOLITARIO :1985 A ge:38 Y S ex:Female Phone: Address:[address] [place] [phone] * true * Date: Generated for Amber zamarripa/Mohsen/eTransmitting on: 0 07/01/2024 08:06 AM CDT
--- OUTSIDE RECORDS SUMMARY | 2024-07-01 08:07 | XMS_ITS | Referral Summary ---
Author Organization [facility] Address [address] [place] [address] Care Team Providers Care Paraprofessional Aide Teacher Name Role Phone Garfield Andrews MD Primary Care Provider Encounters Date Type Department Care Team Description 06/22/2024 Results Follow-Up [facility] Obstetrical Gynecology [address] [place] [address] [place] [phone] Otoniel Singleton MD 06/19/2024 Results Follow-Up [facility] Obstetrical Gynecology [address] [place] [address] [place] [phone] Otoniel Singleton MD 06/14/2024 12:38 PM LASTEX OPERATOR - 06/14/2024 11:59 PM LASTEX OPERATOR Hospital Encounter [address] [address] Dysfunctional uterine bleeding Discharge Disposition: Discharge to home or self care 06/14/2024 Telephone [facility] Medical [facility] Obstetrical Gynecology [address] [phone] Otoniel Singleton MD 06/14/2024 9:30 AM LASTEX OPERATOR Office Visit [facility] Obstetrical Gynecology [address] [place] [phone] Otoniel Singleton MD Dysfunctional uterine bleeding (Primary Dx); PCOS (polycystic ovarian syndrome); Cervical cancer screening 06/13/2024 9:41 AM LASTEX OPERATOR - 06/13/2024 11:59 PM LASTEX OPERATOR Hospital Encounter [address] [address] Menorrhagia with irregular cycle Discharge Disposition: Discharge to home or self care 05/30/2024 Telephone [facility] Medical [facility] Obstetrical Gynecology [address] [facility] [address] [place] [address] Otoniel Singleton MD from Last 3 Months Allergies Active Allergy Reactions Criticality Noted Date Comments Berberine Unknown 06/14/2024 Metformin Other (See comments) Low 06/14/2024 Medications levothyroxine (SYNTHROID) 25 mcg tablet Take 1 tablet (25 mcg total) by mouth every morning Active ergocalciferol (VITAMIN D) 50,000 unit capsule Take 1 capsule every week by oral route for 90 days. 06/08/2024 Active buPROPion XL (WELLBUTRIN XL) 150 mg 24 hr tablet Take 1 tablet (150 mg total) by mouth daily Active montelukast (SINGULAIR) 10 mg tablet Take 1 tablet (10 mg total) by mouth daily Active multivit-min/fe rrous fumarate (MULTI VITAMIN ORAL) Active melatonin 1 mg tablet,disinteg rating Active medroxyPROGESTE Enrique (PROVERA) 10 mg tabletIndicatio ns:Dysfunctiona l uterine bleeding Take 1 tablet twice daily for 5 days then daily. 20 tablet 06/14/2024 Active Active Problems No known active problems Social History Tobacco Use Types Packs/Day Years Used Date Smoking Tobacco: Never Tobacco Cessation:Counseling Given: Not Answered Comments No Sex and Gender Information Value Date Recorded Sex Assigned at Not on file Legal Sex Female 1:16 PM LASTEX OPERATOR Gender Identity Not on file Sexual Orientation Not on file Last Filed Vital Signs Vital Sign Reading Time Taken Comments Blood Pressure 124/66 06/14/2024 9:34 AM LASTEX OPERATOR Pulse - - Temperature - - Respiratory Rate - - Oxygen Saturation - - Inhaled Oxygen Concentration - - Weight 111.5 kg (245 lb 12.8 oz) 06/14/2024 9:34 AM LASTEX OPERATOR Height 167.6 cm (5' 6 ) 06/14/2024 9:34 AM LASTEX OPERATOR Body Mass Index 39.67 06/14/2024 9:34 AM LASTEX OPERATOR Plan of Treatment Not on file Procedures Procedure Name Priority Date/Time Associated Diagnosis Comments PAP AND HIGH RISK HPV, REFLEX TO GENOTYPING Routine 06/14/2024 10:44 AM LASTEX OPERATOR Dysfunctional uterine bleeding HIGH RISK HPV DNA DETECTION WITH GENOTYPING Routine 06/14/2024 10:44 AM LASTEX OPERATOR Dysfunctional uterine bleeding US PELVIS W ENDOVAGINAL Schedule Routine, Read Routine (OP Routine) 06/13/2024 10:22 AM LASTEX OPERATOR Menorrhagia with irregular cycle from Last 3 Months Results * High Risk HPV DNA Detection with Genotyping (Molecular component) (06/14/2024 10:44 AM LASTEX OPERATOR) HPV HR 16 Not Detected Not Detected [facility] Comment:Testing performed by : [facility], [address] [place]., [address] HPV HR 18 Not Detected Not Detected [facility] Comment:Testing performed by : [facility], [address] [place]., [address] HPV HR Non 16/18 Not Detected Not Detected [facility] Comment: Interpretive Data Nucleic acid amplification for detection of high-risk Human Papilloma virus (HPV) is performed by the Nikole Mak 6800 HPV test. This assay specifically detects HPV-16 and HPV-18 genotypes. The following HPV genotypes are detected as high-risk HPV: HPV-31, 33, 35, ,39, 45, 51, 52, 56, 58, 59, 66, and 68. This assay has been approved by the [place] Food and Drug Administration for detection of HPV in cervical specimens collected by a physician using an endocervical brush/spatula or cervical broom and placed in the ThinPrep Pap Test PreservCyt collection containers. The performance characteristics of this test have been verified by the [facility] Molecular Infectious Disease laboratory. Correlate with separately reported cytology results, as applicable. Interpretive data last revised 22 Testing performed by: [facility], [address] [place]., [address] Endocervical 06/14/2024 10:4 4 AM LASTEX OPERATOR 06/15/2024 10:37 AM LASTEX OPERATOR Narrative [facility] - 06/16/2024 12:10 AM LASTEX OPERATOR Clinical history and diagnosis->screen Number of vials->1 Testing type->Screening Last menstrual period (date if known)->05/24/24 Otoniel Singleton MD LAB BODY FLUIDS AND STO OLS ORDERABLES Final Result [facility] [address] [facility] Department [place] [address] [facility] * Pap and High Risk HPV and Genotyping (Cytology Component) (06/14/2024 10:44 AM LASTEX OPERATOR) Thin prep (Pap test) 06/14/2024 10:44 AM LASTEX OPERATOR 06/14/2024 3:51 PM LASTEX OPERATOR Narrative PATHOLOGY [facility] - 06/21/2024 10:56 AM LASTEX OPERATOR EPIC results best viewed via link to PDF [facility] [place] [address] Note to Patients: This report may contain a detailed description of human tissue sent by a health care provider to the laboratory for pathologic evaluation. The content of this report is essential for diagnosis and may provide important critical findings. This information may be unfamiliar to patients to review without a medical professional present. It is advised that the patient review this report in the presence of a health care provider who can answer questions and explain the details. CYTOPATHOLOGY REPORT FINAL Patient Name: KAYCE FOSTER Gender: F : 1985 (Age: 39) Address: [address] [place] [address] [place] [phone] Hospital #: [id number] Service: UNKNOWN Location: Patient Type: [facility] SPECIMEN Taken: 06/14/2024 Received: 06/14/2024 Accessioned: 06/14/2024 Reported: 06/21/2024 Physician(s): Otoniel Singleton M.D. FINAL INTERPRETATION SOURCE OF SPECIMEN Liquid based Thin Prep pap with HPV: STATEMENT OF ADEQUACY - Unsatisfactory specimen - Specimen processed and evaluated, but unsatisfactory for evaluation due to sparsely cellular sample - Obscuring blood present Comments (Normal-Negative for High Risk HPV) HPV HR 16- Not detected HPV HR 18-Not detected HPV HR non 16/18- Not detected Interpretive Data Nucleic acid amplification for detection of high-risk Human Papilloma virus (HPV) is performed by the Nikole Mak 6800 HPV test. This assay specifically detects HPV- 16 and HPV-18 genotypes. The following HPV genotypes are detected as high-risk HPV: HPV-31, 33, 35, 39, 45, 51, 52, 56, 58, 59, 66, and 68. This assay has been approved by the [place] Food and Drug Administration for detection of HPV in cervical specimens collected by a physician using an endocervical brush/spatula or cervical broom and placed in the ThinPrep Pap Test PreservCyt collection containers. The performance characteristics of this test have been verified by the [facility] Molecular Infectious Disease laboratory. Correlate with reported cytology results, as applicable. Interpretive data last revised 22 This specimen has been rescreened in accordance with this laboratory's Hardware Supplies Sales Representative Program. [facility]/06/21/2024 10:56 ANGELES Gayle MS(ASCP)PA Report Electronically Reviewed and Signed Out By ANGELES Alvarez (ASCP) 06/21/2024 10:56:03 Cervicovaginal Cytology (Pap Test) Disclaimer: The Pap test is a screening test used to detect cervical cancer and its precursors; it is not a diagnostic procedure. False negative and false positive results do occur. Pap test results should be interpreted in the context of pertinent clinical information and biopsy results as indicated. [facility] Clinical Laboratory Improvement Amendments (CLIA) mandate that cytologic and histologic results be correlated for laboratory quality assurance assessor & improvement standards. FOR ALL HIGH-GRADE CASES we request submission of follow-up histological material and/or reports that have not been previously provided so that we may fulfill said required standards. Gross Description A. Liquid based Thin Prep pap with HPV: Cervical/vaginal - Screening ThinPrep Specimen was reprocessed and a second ThinPrep pap stained slide was made for evaluation Clinical Diagnosis and History Last Menstrual Period: 05/24/24 The patient is a 39 year old female with screen. Report Images and scanned documents, if included only viewable in PDF version The performance characteristics of some immunohistochemical stains, in-situ hybridization and fluorescence in-situ hybridization tests and immunophenotyping by flow cytometry cited in this report (if any) were determined by the Surgical Pathology Department at [facility] as part of an ongoing director of quality control program and in compliance with federally mandated regulations drawn from the Clinical Laboratory Improvement Act of 1988 (CLIA '88). Some of these tests rely on the use of analyte specific reagents and are subject to specific labeling requirements by the [place] Food and Drug Administration. Such diagnostic tests may only be performed in a facility that is certified by the Department of Health and Human Services as a high complexity laboratory under CLIA '88. The FDA has determined that such clearance or approval is not necessary. This test is used for clinical purposes. It should not be regarded as investigational or for research. Nevertheless, federal rules concerning the medical use of analyte specific reagents require that the following disclaimer be attached to the report: This test was developed and its performance characteristics determined by the Surgical Pathology Department of [facility]. It has not been cleared or approved by the U. S. Food and Drug Administration. Otoniel Singleton MD LAB CYTOLOGY ORDERABLES Final Result PATHOLOGY [facility] * US Pelvis W Endovaginal (06/13/2024 10:22 AM LASTEX OPERATOR) Anatomical Region Laterality Modality Pelvis N/A Ultrasound 06/16/2024 4:08 PM LASTEX OPERATOR Narrative 06/16/2024 4:11 PM LASTEX OPERATOR EXAM DESCRIPTION: US PELVIS W ENDOVAGINAL REASON FOR STUDY: Heavy menses for 25 days. History of PCOS. LMP 05/19/2024. TECHNIQUE: Grayscale ultrasound of the pelvic contents was performed with transabdominal and transvaginal transducer. COMPARISON: None FINDINGS: UTERUS: The uterus is anteverted. The uterus measures 9.5 x 4.3 x 6.8 cm. There a few nabothian cysts within the cervix. Mild heterogeneity of the myometrium, without a discrete mass. There is some echogenic material demonstrated within the cervical canal which may reflect blood products given the provided clinical history. ENDOMETRIUM: The endometrium measures 8 mm in thickness RIGHT OVARY: The right ovary measures 4.3 x 3.4 x 5.7 cm. There is documentation of color Doppler flow in the right ovary. There is peripheral orientation of follicles within the right ovary as can be seen with polycystic ovarian syndrome. LEFT OVARY: The left ovary measures 5.7 x 4.1 x 3.9 cm. There is documentation of color Doppler flow in the left ovary. Peripheral orientation of follicles noted. PELVIC FLUID: There is no evidence of free fluid in the pelvis. OTHER: No other significant findings. IMPRESSION: 1. Prominent size of both ovaries, symmetric, with peripheral orientation of follicles as can be seen with polycystic ovarian syndrome. 2. Uterus normal in size. Endometrium 8 mm in thickness. Minimal echogenic material in the cervical canal which may reflect blood products given the provided clinical history THIS IS AN ELECTRONICALLY VERIFIED FINAL REPORT 06/16/2024 4:11 PM - Electronically signed by Pam Hernandez M.D. TW T: Report ID: [id number] Reading Location: [id number] Procedure Note Pam Hernandez MD - 06/16/2024 EXAM DESCRIPTION: US PELVIS W ENDOVAGINAL REASON FOR STUDY: Heavy menses for 25 days. History of PCOS. LMP 05/19/2024. TECHNIQUE: Grayscale ultrasound of the pelvic contents was performed with transabdominal and transvaginal transducer. COMPARISON: None FINDINGS: UTERUS: The uterus is anteverted. The uterus measures 9.5 x4.3 x 6.8 cm. There a few nabothian cysts within the cervix. Mildheterogeneity of the myometrium, without a discrete mass. There is some echogenicmaterial demonstrated within the cervical canal which may reflect blood productsgiven the provided clinical history. ENDOMETRIUM: The endometrium measures 8 mm in thickness RIGHT OVARY: The right ovary measures 4.3 x 3.4 x 5.7 cm. There is documentation of color Doppler flow in the right ovary. There isperipheral orientation of follicles within the right ovary as can be seen withpolycystic ovarian syndrome. LEFT OVARY: The left ovary measures 5.7 x 4.1 x 3.9 cm. There is documentation of color Doppler flow in the left ovary. Peripheralorientation of follicles noted. PELVIC FLUID: There is no evidence of free fluid in the pelvis. OTHER: No other significant findings. IMPRESSION: 1. Prominent size of both ovaries, symmetric, with peripheralorientation of follicles as can be seen with polycystic ovarian syndrome. 2. Uterus normal in size. Endometrium 8 mm in thickness. Minimalechogenic material in the cervical canal which may reflect blood products given the provided clinical history THIS IS AN ELECTRONICALLY VERIFIED FINAL REPORT 06/16/2024 4:11 PM - Electronically signed by Pam Hernandez M.D. TW T: Report ID: [id number] Reading Location: [place] [address] Otoniel Singleton MD IMG PROCEDURES Final Result from Last 3 Months Insurance [employer] OPEN ACCESS Care Teams Paraprofessional Aide Teacher Relationship Specialty Start Date End Date Garfield Andrews MD [address] [place] [address] [address] [place] [address] PCP - General Family Medicine 05/30/24
--- OUTSIDE RECORDS SUMMARY | 2024-07-01 08:07 | XMS_ITS | Encounter Summary ---
Author Organization [facility] Healthcare Address [address] [place] [address] Care Team Providers Care Extrusion Die Repairer Name Role Phone Garfield Andrews MD Primary Care Provider [phone] Encounter Details Date Type Department Care Team (Late st Contact Info) Description 06/19/2024 Results Follow-Up [facility] Obstetrical Gynecology [address] [facility] [address] [place] [phone] Otoniel Singleton MD [address] [facility] [address] [place] [address] Social History Tobacco Use Types Packs/Day Years Used Date Smoking Tobacco: Never Comments No Sex and Gender Information Value Date Recorded Sex Assigned at Not on file Legal Sex Female 1:16 PM COAL DRIER OPERATOR Gender Identity Not on file Sexual Orientation Not on file documented as of this encounter Plan of Treatment Not on file documented as of this encounter Visit Diagnoses Not on filedocumented in this encounter Care Teams Extrusion Die Repairer Relationship Specialty Start Date End Date Garfield Andrews MD [address] [place] [address] [address] [place] [address] PCP - General Family Medicine 05/30/24 documented as of this encounter
--- OUTSIDE RECORDS SUMMARY | 2024-07-01 08:07 | XMS_ITS | Encounter Summary ---
Author Organization [facility] Healthcare Address [address] [place] [address] Care Team Providers Care Telephonic Rn Name Role Phone Garfield Andrews MD Primary Care Provider [phone] Encounter Details Date Type Department Care Team (Late st Contact Info) Description 06/22/2024 Results Follow-Up [facility] Group Obstetrical Gynecology [address] [facility] [address] [place] [phone] Otoniel Singleton MD [address] [facility] [address] [place] [address] Social History Tobacco Use Types Packs/Day Years Used Date Smoking Tobacco: Never Comments No Sex and Gender Information Value Date Recorded Sex Assigned at Not on file Legal Sex Female 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
--- OUTSIDE RECORDS SUMMARY | 2024-07-01 08:07 | XMS_ITS | Data Portability ---
Author Organization [facility] Address [address] [place] [address] Assessment No assessment recorded. Plan of Treatment Reminders Order Date Submit Date Provider Last Modified By Organization Details Last Modified Time Details Appointments ANY 15 2024 08:15A Trav Andrews MD Not available Not available Not available Lab vitamin D, 25-hydrox y, total, serum 2024 025 [email or web address] [facility] (Lab), [address] [place], [address], 06/22/2024 12:35:04 CBC w/ auto diff 2024 025 [facility] (Lab), [address] [facility], [place], [address], 05/31/2024 11:10:29 unlisted lab - reticuloc yte count 2024 025 [facility] (Lab), [address] [place], [address], 05/31/2024 11:10:32 iron panel, serum or plasma 2024 025 [email or web address] [facility] (Lab), [address] [place], [address], 06/22/2024 12:35:04 TSH, serum or plasma 2024 025 [facility] (Lab), [address] [place], [address], 05/31/2024 11:25:54 gluten igg, serum [email or web address] [place] [address] (Lab), [address] [place], [address], 06/13/2024 09:56:34 unlisted lab - TSH rfx on abnormal to free T4 2023 024 [facility] (Lab), [address] [place], [address], 01/10/2024 21:54:12 unlisted lab - quantifer on-TB gold plus 2023 024 [facility] (Lab), [address] [place], [address], 07/01/2023 08:15:19 Referral gynecolog ist referral 2024 025 MELODIE Chaney [address] [place], [address], 06/15/2024 11:47:08 gynecolog ist referral 2024 025 UZAIR Chaney, [address] [facility] [place], [address], 06/09/2024 14:30:38 Procedures None recorded. Surgeries None recorded. Imaging XR, chest, 2 view 2024 025 [facility] (Rad), [address] [place], [address], 05/17/2024 09:31:43 Medication Orders albuterol sulfate HFA 90 mcg/actua tion aerosol inhaler 2024 025 [email or web address] [facility] #61610, [address], [place], [id number], 05/16/2024 18:02:34 codeine 10 mg-guaife nesin 100 mg/5 mL oral liquid 2024 025 [facility] #29960, [address] [place] [address], [id number], 05/17/2024 11:42:23 Zithromax Z-Yung 250 mg tablet 2024 025 [facility] #81282, [address] [place] [address], [id number], 05/30/2024 10:31:26 cefuroxim e axetil 250 mg tablet 2024 025 [facility] #33226, [address] [place] [address], [id number], 05/30/2024 10:31:20 triamcino lone acetonide 40 mg/mL suspensio n for injection [address] [facility] #67294, [address] [place] [address], [id number], 05/30/2024 10:30:29 ceftriaxo ne 500 mg solution for injection [address], [address] [place] [address], [id number], 05/30/2024 10:30:20 Medrol (Yung) 4 mg tablets in a dose pack 2024 025 [facility] #47815, [address] [place] [address], [id number], 05/30/2024 10:31:27 levothyro xine 25 mcg tablet 2023 024 [facility] #99042, [address], [place], [id number], 01/08/2024 13:41:33 bupropion HCl XL 150 mg 24 hr tablet, extended release 2023 024 [facility] #22587, [address] [place], [id number], 01/08/2024 13:41:34 albuterol sulfate HFA 90 mcg/actua tion aerosol inhaler 2023 024 [facility] #08811, [address], [id number], 06/26/2023 16:48:33 Patient TargetsNo targets recorded. 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 [facility] recei ruth ann incub ated speci men. Not Available [facility] (Lab) [address] [place], [address], 07/01/2023 08:15:18 06/26/19 24 07/01/2023 QUANT IFERO N-TB GOLD PLUS quantiferon- TB gold plus Negati ve negati ve No respo nse to M tuber culos is antig ens detec roger. Infec tion with M tuber culos is is unlik michelle, but high risk indiv idual s shoul d be consi dered for addit ional testi ng (ATS/ IDSA/ CDC Clini yusef Pract ice Guide lines , 2017) . The refer ence range is an Antig en minus Nil resul t of <0.35 IU/mL . Chemi lumin escen ce immun oassa y metho dolog y Perfo rmed at: 01 - [facility] [address] [facility], [place] [address] Lab Direc tor: Chan ortiz PhD, Phone : [phone] Not Available [facility] (Lab) [address] [place], [address], 07/01/2023 08:15:18 06/26/1907/01/2023 QUANT IFERO N-TB GOLD PLUS quantiferon criteria Commen t . Quant iFERO N-TB Gold Plus is a quali tativ e indir ect test for M tuber mickieos is infec tion (incl uding disea se) and is inten ded for use in conju nctio n with risk asses sment , radio graph y, and other medic al and diagn ostic evalu ation s. The Quant iFERO N-TB Gold Plus resul t is deter mined by subtr actin g the Nil value from eithe r TB antig en (Ag) value . The Mitog en tube serve s as a contr ol for the test. Not Available [facility] (Lab) [address] [place], [address], 07/01/2023 08:15:18 06/26/1907/01/2023 QUANT IFERO N-TB GOLD PLUS quantiferon TB1 Ag value 0.03 IU/mL . Not Available [facility] (Lab) [address] [place], [address], 07/01/2023 08:15:18 06/26/1907/01/2023 QUANT IFERO N-TB GOLD PLUS quantiferon TB2 Ag value 0.04 IU/mL . Not Available [facility] [address] [place], [address], 07/01/2023 08:15:18 06/26/19 24 07/01/2023 QUANT IFERO N-TB GOLD PLUS quantiferon nil value 0.03 IU/mL . Not Available [facility] (Lab) [address] [place], [address], 07/01/2023 08:15:18 06/26/19 24 07/01/2023 QUANT IFERO N-TB GOLD PLUS quantiferon mitogen value >10.00 IU/mL . Not Available [facility] [address] [facility], [place], [address], 07/01/2023 08:15:18 01/08/20 24 01/10/2024 TSH RFX ON ABNOR MAL TO FREE T4 TSH rfx on abnormal to free T4 1.82 uIU/m L 0.450- 4.500 normal Not Available [facility] (Lab) [address] [place], [address], 01/10/2024 21:54:12 05/30/19 25 05/31/2024 COMPL ETE BLOOD COUNT AUTO DIFF white blood count 11.9 x10e3 /uL 3.4-10 .8 high Not Available [facility] (Lab) [address] [place], [address], 05/31/2024 11:10:29 05/30/19 25 05/31/2024 COMPL ETE BLOOD COUNT AUTO DIFF red blood count 4.21 x10e6 /uL 3.77-5 .28 normal Not Available [facility] (Lab) [address] [place], [address], 05/31/2024 11:10:29 05/30/19 25 05/31/2024 COMPL ETE BLOOD COUNT AUTO DIFF hemoglobin 11.9 g/dL 11.1-1 5.9 normal Not Available [facility] (Lab) [address], [place], [address], 05/31/2024 11:10:29 05/30/19 25 05/31/2024 COMPL ETE BLOOD COUNT AUTO DIFF hematocrit 38.6 % 34.0-4 6.6 normal Not Available [facility] (Lab) [address] [place], [address], 05/31/2024 11:10:29 05/30/19 25 05/31/2024 COMPL ETE BLOOD COUNT AUTO DIFF mean corpuscular volume 92 fL 79-97 normal Not Available [facility] (Lab) [address], [place], [address], 05/31/2024 11:10:29 05/30/19 25 05/31/2024 COMPL ETE BLOOD COUNT AUTO DIFF mean corpuscular hemoglobin 28.3 pg 26.6-3 3.0 normal Not Available [facility] (Lab) [address], [place], [address], 05/31/2024 11:10:29 05/30/19 25 05/31/2024 COMPL ETE BLOOD COUNT AUTO DIFF mean corpuscular HGB conc 30.8 g/dL 31.5-3 5.7 low Not Available [facility] (Lab) [address], [place], [address], 05/31/2024 11:10:29 05/30/19 25 05/31/2024 COMPL ETE BLOOD COUNT AUTO DIFF red cell distribution width 13.0 % 11.5-1 4.5 normal Not Available [facility] (Lab) [address] [place], [address], 05/31/2024 11:10:29 05/30/19 25 05/31/2024 COMPL ETE BLOOD COUNT AUTO DIFF platelet count 406 x10e3 /uL 150-45 0 normal Not Available [facility] (Lab) [address] [place], [address], 05/31/2024 11:10:29 05/30/19 25 05/31/2024 COMPL ETE BLOOD COUNT AUTO DIFF mean platelet volume 9.0 fL 8.9-12 .7 normal Not Available [facility] (Lab) [address], [place], [address], 05/31/2024 11:10:29 05/30/19 25 05/31/2024 COMPL ETE BLOOD COUNT AUTO DIFF immature granulocytes pct auto 0.3 % not estb. Not Available [facility] (Lab) [address], [place], [address], 05/31/2024 11:10:29 05/30/19 25 05/31/2024 COMPL ETE BLOOD COUNT AUTO DIFF neutrophils percent auto 68 % not estb. Not Available [facility] (Lab) [address], [place], [address], 05/31/2024 11:10:29 05/30/19 25 05/31/2024 COMPL ETE BLOOD COUNT AUTO DIFF lymphocytes percent auto 25 % not estb. Not Available [facility] (Lab) [address], [place], [address], 05/31/2024 11:10:29 05/30/19 25 05/31/2024 COMPL ETE BLOOD COUNT AUTO DIFF monocytes percent auto 5 % not estb. Not Available [facility] (Lab) [address], [place], [address], 05/31/2024 11:10:29 05/30/19 25 05/31/2024 COMPL ETE BLOOD COUNT AUTO DIFF eosinophils percent auto 2 % not estb. Not Available [facility] ([facility]) [address], [place], [address], 05/31/2024 11:10:29 05/30/19 25 05/31/2024 COMPL ETE BLOOD COUNT AUTO DIFF basophils percent auto 1 % not estb. Not Available [facility] ([facility]) [address], [place], [address], 05/31/2024 11:10:29 05/30/19 25 05/31/2024 COMPL ETE BLOOD COUNT AUTO DIFF neutrophils absolute auto 8.1 x10e3 /uL 1.4-7. 0 high Not Available [facility] (Lab) [address], [place], [address], 05/31/2024 11:10:29 05/30/19 25 05/31/2024 COMPL ETE BLOOD COUNT AUTO DIFF immature granulocytes abs auto 0.0 x10e3 /uL 0.0-0. 1 normal Not Available [facility] (Lab) [address], [place], [address], 05/31/2024 11:10:29 05/30/19 25 05/31/2024 COMPL ETE BLOOD COUNT AUTO DIFF lymphocytes absolute auto 2.9 x10e3 /uL 0.7-3. 1 normal Not Available [facility] (Lab) [address], [place], [address], 05/31/2024 11:10:29 05/30/19 25 05/31/2024 COMPL ETE BLOOD COUNT AUTO DIFF monocytes absolute auto 0.6 x10e3 /uL 0.1-0. 9 normal Not Available [facility] (Lab) [address], [place], [address], 05/31/2024 11:10:29 05/30/19 25 05/31/2024 COMPL ETE BLOOD COUNT AUTO DIFF eosinophils absolute auto 0.2 x10e3 /uL 0.0-0. 4 normal Not Available [facility] (Lab) [address] [place], [address], 05/31/2024 11:10:29 05/30/19 25 05/31/2024 COMPL ETE BLOOD COUNT AUTO DIFF basophils absolute auto 0.1 x10e3 /uL 0.0-0. 2 normal Not Available [facility] (Lab) [address] [place], [address], 05/31/2024 11:10:29 02/11/05/31/2024 COMPL ETE BLOOD COUNT AUTO DIFF nucleated red blood cells auto 0 % 0-0 normal Not Available [facility] [address] [place], [address], 05/31/2024 11:10:29 05/30/1905/31/2024 RETIC ULOCY TE COUNT reticulocyte count 1.5 % 0.5-1. 5 normal Not Available [facility] (Lab) [address] [place], [address], 05/31/2024 11:10:31 05/30/19 25 05/31/2024 THYRO ID STIMU LATIN G HORMO NE thyroid stimulating hormone 1.420 uIU/m L 0.450- 4.500 normal Not Available [facility] (Lab) [address] [place], [address], 05/31/2024 11:25:54 05/30/19 25 06/02/2024 IRON AND TIBC iron bind.cap.(TI BC) 262 ug/dL 250-45 0 Not Available [facility] (Lab) [address] [place], [address], 06/02/2024 08:10:07 05/30/19 25 06/02/2024 IRON AND TIBC UIBC 185 ug/dL 131-42 5 Not Available [facility] (Lab) [address] [place], [address], 06/02/2024 08:10:07 05/30/19 25 06/02/2024 IRON AND TIBC iron 77 ug/dL 27-159 Not Available [facility] (Lab) [address] [place], [address], 06/02/2024 08:10:07 05/30/19 25 06/02/2024 IRON AND TIBC iron saturation 29 % 15-55 Perfo rmed at: 01 - [facility] [address] [id number] [facility] Lab Direc tor: Chan ortiz PhD, Phone : [phone] Not Available [facility] (Lab) [address] [place], [address], 06/02/2024 08:10:07 05/30/19 25 06/02/2024 VITAM IN D, 25-HY DROXY vitamin D, 25-hydroxy 26.5 NG/mL 30.0-1 00.0 abnormal Vitam in D defic iency has been defin ed by the Insti tute of Medic ine and an Endoc rine Socie ty pract ice guide line as a level of serum 25-OH vitam in D less than 20 ng/mL (1,2) . The Endoc rine Socie ty went on to furth er defin e vitam in D insuf ficie ncy as a level betwe en 21 and 29 ng/mL (2). 1. IOM (Inst itute of Medic ine). 2010. Dieta ry refer ence intak es for calci um and D. Daija shaver [place]: The [facility] . 2. Evaristo heart MF, Michelle bliss [place], Arun off-F errar i CARRANZA, et al. Evalu ation , treat ment, and preve ntion of vitam in D defic iency : an Endoc rine Socie ty clini yusef pract ice guide line. JCEM. 2010; 96(7) :1911 -30. Perfo rmed at: 01 - [facility] [address] [address] Lab Direc tor: Chan ortiz PhD, Phone : [phone] Not Available [facility] (Lab) [address] [place], [address], 06/02/2024 08:15:21 05/30/19 25 06/04/2024 [facility] RP CATIA PROCTOR OUS CODE [facility] miscellbogdanou s code COMMEN T . Test Order ed: [id number]- IgG Glute n F079- IgG Glute n <2.0 ug/mL 01 Refer ence Range : 0.0-1 .9 This test was devel oped and its perfo rmanc e zainab cteri stics deter mined by [facility]. It has not been clear ed or appro ruth ann by the Food and Drug Admin istra tion. The FDA has deter mined that such clear ance or appro yemi is not necklaus santana. Resul ts of this test are for inves tigat ional purpo ses only. The resul t shoul d not be used as a diagn ostic proce dure witho ut confi rmati on of the diagn osis by anoth er medic ally estab lishe d diagn ostic produ ct or proce dure. Perfo rmed at: 01 - [facility] [address] [address] Lab Direc tor: Zhane oropeza MD, Phone : [phone] Perfo rmed at: 02 - [facility] [employer] [facility] [address] [place] [address] Lab Direc tor: Chan otriz PhD, Phone : [phone] Not Available [facility] (Lab) [address] [place], [address], 06/04/2024 19:08:55 06/14/19 25 06/14/2024 COMPL ETE BLOOD COUNT AUTO DIFF white blood count 12.3 x10e3 /uL 3.4-10 .8 high Not Available [facility] (Lab[facility] [address] [place], [address], 06/14/2024 12:57:45 06/14/19 25 06/14/2024 COMPL ETE BLOOD COUNT AUTO DIFF red blood count 2.47 x10e6 /uL 3.77-5 .28 low Not Available [facility] (Lab) [address] [place], [address], 06/14/2024 12:57:45 06/14/19 25 06/14/2024 COMPL ETE BLOOD COUNT AUTO DIFF hemoglobin 7.1 g/dL 11.1-1 5.9 low RESUL TS VERIF IED AND RANDHAWA D TO Janelle JAIME BY Reina sotomayor AT 1148 ON 06/14. Resul ts faxed to Dr.Ch adwic k. Not Available [facility] (Lab) [address], [place], [address], 06/14/2024 12:57:45 06/14/19 25 06/14/2024 COMPL ETE BLOOD COUNT AUTO DIFF hematocrit 23.2 % 34.0-4 6.6 low Not Available [facility] (Lab) [address] [place], [address], 06/14/2024 12:57:45 06/14/19 25 06/14/2024 COMPL ETE BLOOD COUNT AUTO DIFF mean corpuscular volume 94 fL 79-97 normal Not Available [facility] (Lab) [address] [facility], [place], [address], 06/14/2024 12:57:45 06/14/19 25 06/14/2024 COMPL ETE BLOOD COUNT AUTO DIFF mean corpuscular hemoglobin 28.7 pg 26.6-3 3.0 normal Not Available [facility] (Lab) [address] [facility], [place], [address], 06/14/2024 12:57:45 06/14/19 25 06/14/2024 COMPL ETE BLOOD COUNT AUTO DIFF mean corpuscular HGB conc 30.6 g/dL 31.5-3 5.7 low Not Available [facility] (Lab) [address] [facility], [place], [address], 06/14/2024 12:57:45 06/14/19 25 06/14/2024 COMPL ETE BLOOD COUNT AUTO DIFF red cell distribution width 14.7 % 11.5-1 4.5 high Not Available [facility] (Lab) [address] [place], [address], 06/14/2024 12:57:45 06/14/19 25 06/14/2024 COMPL ETE BLOOD COUNT AUTO DIFF platelet count 421 x10e3 /uL 150-45 0 normal Not Available [facility] (Lab) [address] [place], [address], 06/14/2024 12:57:45 06/14/19 25 06/14/2024 COMPL ETE BLOOD COUNT AUTO DIFF mean platelet volume 8.0 fL 8.9-12 .7 low Not Available [facility] (Lab) [address], [place], [address], 06/14/2024 12:57:45 06/14/19 25 06/14/2024 COMPL ETE BLOOD COUNT AUTO DIFF immature granulocytes pct auto 1.2 % not estb. Not Available [facility] ([facility]) [address] [facility], [place], [address], 06/14/2024 12:57:45 06/14/19 25 06/14/2024 COMPL ETE BLOOD COUNT AUTO DIFF neutrophils percent auto 63 % not estb. Not Available [facility] (Lab) [address] [facility], [place], [address], 06/14/2024 12:57:45 06/14/19 25 06/14/2024 COMPL ETE BLOOD COUNT AUTO DIFF lymphocytes percent auto 27 % not estb. Not Available [facility] ([facility]) [address] [facility], [place], [address], 06/14/2024 12:57:45 06/14/19 25 06/14/2024 COMPL ETE BLOOD COUNT AUTO DIFF monocytes percent auto 6 % not estb. Not Available [facility] (Lab) [address] [facility], [place], [address], 06/14/2024 12:57:45 06/14/19 25 06/14/2024 COMPL ETE BLOOD COUNT AUTO DIFF eosinophils percent auto 2 % not estb. Not Available [facility] (Lab) [address] [facility], [place], [address], 06/14/2024 12:57:45 06/14/19 25 06/14/2024 COMPL ETE BLOOD COUNT AUTO DIFF basophils percent auto 1 % not estb. Not Available [facility] ([facility]) [address] [facility], [place], [address], 06/14/2024 12:57:45 06/14/19 25 06/14/2024 COMPL ETE BLOOD COUNT AUTO DIFF neutrophils absolute auto 7.8 x10e3 /uL 1.4-7. 0 high Not Available [facility] (Lab) [address] [facility], [place], [address], 06/14/2024 12:57:45 06/14/19 25 06/14/2024 COMPL ETE BLOOD COUNT AUTO DIFF immature granulocytes abs auto 0.2 x10e3 /uL 0.0-0. 1 high Not Available [facility] (Lab) [address] [place], [address], 06/14/2024 12:57:45 06/14/19 25 06/14/2024 COMPL ETE BLOOD COUNT AUTO DIFF lymphocytes absolute auto 3.4 x10e3 /uL 0.7-3. 1 high Not Available [facility] (Lab) [address] [facility], [place], [address], 06/14/2024 12:57:45 06/14/19 25 06/14/2024 COMPL ETE BLOOD COUNT AUTO DIFF monocytes absolute auto 0.7 x10e3 /uL 0.1-0. 9 normal Not Available [facility] (Lab) [address] [facility], [place], [address], 06/14/2024 12:57:45 06/14/19 25 06/14/2024 COMPL ETE BLOOD COUNT AUTO DIFF eosinophils absolute auto 0.3 x10e3 /uL 0.0-0. 4 normal Not Available [facility] (Lab) [address] [place], [address], 06/14/2024 12:57:45 06/14/19 25 06/14/2024 COMPL ETE BLOOD COUNT AUTO DIFF basophils absolute auto 0.1 x10e3 /uL 0.0-0. 2 normal Not Available [facility] (Lab) [address] [place], [address], 06/14/2024 12:57:45 06/14/19 25 06/14/2024 COMPL ETE BLOOD COUNT AUTO DIFF nucleated red blood cells auto 0 % 0-0 normal Not Available [facility] (Lab) [address], [place], [address], 06/14/2024 12:57:45 05/17/19 25 05/17/2024 XR, chest , 2 view No observ ation record ed. [facility] [address], [place], [address], 05/18/2024 11:32:46 Result Notes None recorded. 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 Procedures Surgical History Date Name Laterality Status Provider Name and Address Organization Details Recorded Time 04/19/19 colonoscopy completed Heaven Bolanos MA [facility] 06/26/2023 15:29:11 04/19/19 oral irrigation completed Heaven Bolanos MA [facility] 06/26/2023 15:29:39 Imaging Results Imaging Date Name Status LastModified by Organiz ation Details LastModified Time 05/17/2024 XR, chest, 2 view completed [facility] [address], [place], [address], 05/18/2024 11:32:46 Procedure Notes None recorded. Medical Equipment None Reported. Allergies Allergen ID Allergen Name Allergen Category Reaction Reaction Severity Criticality Documentation Date Start Date Code Code System Note Provider Name and Address Organization Details Recorded Time 283641 metformin medicatio n Not available Not available Not available 06/26/2023 6809 RxNorm Not Available Not Available Not Available 152034 berberine Not available Not available Not available Not available 06/26/2023 1437 RxNorm Not Available Not Available Not Available Medications Name Sig Start Date Stop Date Status Note LastModified by Organization Details LastModified Time medroxyprog esterone 10 mg tablet TAKE 1 TABLET BY MOUTH TWICE DAILY FOR 5 DAYS THEN ONCE DAILY active Not Available Not Available No t Available cefuroxime axetil 250 mg tablet TAKE 1 TABLET BY MOUTH EVERY 12 HOURS FOR 10 DAYS 05/30 completed Not Available Not Available Not Available azithromyci n 250 mg tablet TK 2 TS PO ON DAY 1, THEN TK 1 T PO D FOR 4 DAYS 05/30 completed Not Available Not Available Not Available inositol (bulk) powder active Not Available Not Available Not Available prednisone 20 mg tablet TAKE 2 TABLETS BY MOUTH DAILY FOR 5 DAYS active Not Available Not Available No t Available levothyroxi ne 25 mcg tablet TAKE 1 TABLET BY MOUTH EVERY MORNING active Not Available Not Available No t Available amoxicillin 875 mg tablet TAKE 1 TABLET BY MOUTH EVERY 12 HOURS FOR 7 DAYS 05/30 completed Not Available Not Available Not Available benzonatate 100 mg capsule TAKE 1 CAPSULE BY MOUTH TWICE DAILY NEEDED FOR COUGH 05/30 completed Not Available Not Available Not Available triamcinolo ne acetonide 40 mg/mL suspension for injection Take 80 mg by injection route. 05/30 completed Not Available Not Available Not Available montelukast 10 mg tablet TAKE 1 TABLET BY MOUTH EVERY DAY active Not Available Not Available No t Available ceftriaxone 500 mg solution for injection Take 500 mg by injection route. 05/30 completed Not Available Not Available Not Available ergocalcife rol (vitamin D2) 1,250 mcg (50,000 unit) capsule TAKE 1 CAPSULE BY MOUTH EVERY WEEK active Not Available Not Available No t Available methylpredn isolone 4 mg tablets in a dose pack FOLLOW PACKAGE DIRECTION S 05/30 completed Not Available Not Available Not Available albuterol sulfate HFA 90 mcg/actuati on aerosol inhaler INHALE 2 PUFFS BY MOUTH EVERY 4 HOURS NEEDED FOR SHORTNESS OF BREATH active Not Available Not Available No t Available bupropion HCl XL 150 mg 24 hr tablet, extended release TAKE 1 TABLET BY MOUTH DAILY active Not Available Not Available No t Available melatonin active Not Available Not Emma ilable Not Available Fish Oil active Not Available Not Avai lable Not Available Vitamin D3 active Not Available Not Av ailable Not Available black cohosh active 300mg Not Available Not Available Not Available Vitex-C-12 active Not Available Not Av ailable Not Available Cinnamon active Not Available Not Avai lable Not Available Probiotic active Not Available Not Emma ilable Not Available Multi Vitamin active Not Available Not Available Not Available [place] active Not Available Not Available Not Available Vitals Date Recorded Body height Body mass index (BMI) Body weight Body temperature Respiratory rate Heart rate Oxygen saturation Oxygen saturation in Arterial blood by Pulse oximetry Systolic blood pressure Diastolic blood pressure Provider Name and Address Organization Details Last Updated DateTime 4 167.64 cm 39.9 kg/m2 775624. 67 g 98.4 [degF] 20 /min 75 /min 98 % 98 % 105 mm[Hg] 70 mm[Hg] Heaven Bolanos [place] [facility] 4 15:32:39 Date Recorded Body height Body mass index (BMI) Body weight Oxygen saturation Oxygen saturation in Arterial blood by Pulse oximetry Body temperature Heart rate Systolic blood pressure Diastolic blood pressure Provider Name and Address Organization Details Last Updated DateTime 4 167.64 cm 42 kg/m2 248462. 77 g 97 % 97 % 98.2 [degF] 92 /min 135 mm[Hg] 84 mm[Hg] Caryl Cherry MA [facility] 4 13:30:55 Date Recorded Body height Body mass index (BMI) Body weight Oxygen saturation Oxygen saturation in Arterial blood by Pulse oximetry Heart rate Systolic blood pressure Diastolic blood pressure Provider Name and Address Organization Details Last Updated DateTime 5 167.64 cm 39.1 kg/m2 927046. 4 g 98 % 98 % 82 /min 124 mm[Hg] 74 mm[Hg] Cristy Bell MA [facility] 5 16:38:00 Date Recorded Body height Body mass index (BMI) Body weight Oxygen saturation Oxygen saturation in Arterial blood by Pulse oximetry Heart rate Systolic blood pressure Diastolic blood pressure Provider Name and Address Organization Details Last Updated DateTime 5 167.64 cm 39.3 kg/m2 028813 g 98 % 98 % 86 /min 122 mm[Hg] 72 mm[Hg] Cristy Bell MA [facility] 5 11:25:51 Date Recorded Body height Body mass index (BMI) Body weight Oxygen saturation Oxygen saturation in Arterial blood by Pulse oximetry Heart rate Respiratory rate Systolic blood pressure Diastolic blood pressure Provider Name and Address Organization Details Last Updated DateTime 5 167.64 cm 39.2 kg/m2 797602. 95 g 99 % 99 % 77 /min 16 /min 128 mm[Hg] 88 mm[Hg] Sasha Duran [facility] 5 10:35:43 Social History Question Answer Notes LastModified by Organizat ion Details LastModified Time Tobacco Smoking Status Never Smoker RONALD Queen, [facility] 06/26/2023 15:27:01 What Is Your Level Of Alcohol Consumption? Occasional Information not available 06/26/2023 How Many Years Have You Consumed Alcohol? 10 Information not available 06/26/2023 What Is Your Level Of Caffeine Consumption? Moderate Information not available 06/26/2023 Are There Any Guns Present In Your Home? No Information not available 06/26/2023 What Was The Date Of Your Most Recent Tobacco Screening? 05/30/2024 [email or web address] Information not available 05/30/2024 What Is Your Relationship Status? Information not available 06/26/2023 Do You Use Your Seat Belt Or Car Seat Routinely? Yes Information not available 06/26/2023 Do You Have Smoke And Carbon Monoxide Detectors In Your Home? Yes Information not available 06/26/2023 Are You Passively Exposed To Smoke? No Information no t available 06/26/2023 Do You Feel Stressed (tense, Restless, Nervous, Or Anxious, Or Unable To Sleep At Night)? [id number] Information not available 06/26/2023 Do You Use Any Illicit Or Recreational Drugs? No Information not available 06/26/2023 Do You Use Sunscreen Routinely? Yes Information not available 06/26/2023 Has Tobacco Cessation Counseling Been Provided? No Information not available 06/26/2023 Do You Or Have You Ever Used Any Other Forms Of Tobacco Or Nicotine? No Information not available 06/26/2023 Sex: Female Functional Status None recorded. Mental Status None recorded. Family History Relationship Description Onset Age of this Age Resolved Age Notes LastModified by Organization Details LastModified Time Brother Asthma [email or web address] Not availab le 06/26/2023 15:24:05 Brother Attention deficit hyperactivit y disorder [email or web address] Not available 12/2023 15:25:43 Father Asthma [email or web address] Not availabl e 06/26/2023 15:24:05 Father Diabetes mellitus [email or web address] Not available 12/2023 15:24:22 Father Attention deficit hyperactivit y disorder [email or web address] Not available 12/2023 15:25:43 Father Depressive disorder [email or web address] Not available 2024 17:51:23 Unspecified Relation Diabetes mellitus [email or web address] Not available 12/2023 15:24:22 Mother Reproductive finding reprod uctive cancer [email or web address] Not available 06/26/2023 15:25:15 Mother Polycystic ovary syndrome [email or web address] Not available 12/2023 15:25:29 Mother Depressive disorder [email or web address] Not available 2024 17:51:23 Mother Hypertensive disorder [email or web address] Not available 2024 17:51:36 Mother Hypercholest erolemia [email or web address] Not available 2024 17:51:43 Medical History Condition Response Coronary Artery Disease N Other N Atrial Fibrillation N High Blood Pressure N Thyroid Problems Y Kidney or Bladder Problems N Depression Y COPD N Blood Clots N GI Problems Y Have you had a mammogram in the last yea r? N Skin Problems N Eating Disorder N Anemia Y Heart Attack (IA) N Diabetes N Anxiety Disorder Y Muscle, Joint, or Bone Problems N Seizures/Epilepsy N Have you had a colonoscopy in the last 1 0 years? N Arthritis N Acid Reflux (GERD) N Cancer N Stroke N Allergies Y Asthma Y Have you had a PSA blood test in the las t year? N ADHD N Substance Abuse N High Cholesterol Y Hepatitis N Liver Disease N Schizophrenia N Headaches N Osteoporosis N Heart Failure N Gynecological HistoryNo gynecological history recorded. Obstetrics History GPAL:G 0 P 0 0 0 0 Past Encounters Encounter ID Performer Location Encounter Start Date Encounter Closed Date Diagnosis/Indication Diagnosis SNOMED-CT Code Diagnosis ICD10 Code Diagnosis Note [id number] [facility] [address] [place] [address] 06/26/2023 14:54:14 06/28/2023 11:03:20 Tuberculosis screening 877059188 Z11.1 Adult [facility] examination 902067653 Z00.00 Asthma 529874811 J45.90 9 [id number] DELBERT RAIN NP [facility] [address] [place] [address] 01/08/2024 13:23:29 01/10/2024 15:07:30 Hypothyroidism 29426395 E03.9 pt encouraged to keep appt with pcp will check tsh as per last labs in August tsh was not resulted [id number] Garfield Andrews MD [facility] [place] [address] [facility] [address] [place] [address] 05/16/2024 16:24:43 05/17/2024 10:57:36 Acute sinusitis 38751447 J01.90 condition acute rocephin, kenalog 80 mg, ceftin, medrol dose pack order cxr at [place] continue the albuterol inhaler order z pack Cough 53627294 R05.9 condition acute d/c the tessalo peerles order chertussin Hypothyroidism 41093320 E03.9 conditoin chroinc and at goal continue the levothyrox ine Vitamin D deficiency 347 95519 E55.9 conditon chroiuc nad at goal ocntinut eh vit d daily Obesity 763869521 E66.9 conditon chronic and not at goal start low fat diet. Asthma 808561810 J45.90 9 [id number] Garfield Andrews MD [facility] [employer] [place] [address] [address] 05/23/2024 11:07:11 05/26/2024 14:03:40 Hypothyroidism 60405636 E03.9 conditoin chroinc and at goal continue the levothyrox ine Vitamin D deficiency 347 48388 E55.9 conditon chroiuc nad at goal ocntinut eh vit d daily Obesity 865355275 E66.9 conditon chronic and not at goal start low fat diet. 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 order cbc, retic count, iron panel Hypothyroidism 57081848 E03.9 conditoin chroinc and at goal continue the levothyrox ine order tsh Non-celiac gluten sensitivity 077791513 K90.41 conditon chronic and at goal order a gluten panel Vitamin D deficiency 347 43819 E55.9 conditon chroiuc nad at goal ocntinut eh vit d daily order vit d level Obesity 716423666 E66.9 conditon chronic and not at goal start low fat diet. Polycystic ovary syndrome of bilateral ovaries 604432442 E28.2 conditon chronic wiht exacerbato in refer to dr chaney Health Concerns Section Related Observation LastModified by Organization Detai ls LastModified Time None Recorded Concern Status LastModified by Organization Details LastModified Time None Recorded Advance Directives Directive None Recorded Payers Encounter Date Sequence Insurance Name Policy Number Policy Vela Covered Member ID Vela Member ID Guarantor Name 06/26/2023 1 [employer] - ALLIED BENEFITS - OPEN ACCESS [id number] Kayce Ravi Seifried [id number] Kayce Ravi Seifried 01/08/2024 1 [employer] - [employer]ENEFITS - OPEN ACCESS [id number] Kayce Ravi Secaseyried [id number] Kayce Ravi Seifried 05/16/2024 1 [employer] - ALLIED [employer]ENEFITS - OPEN ACCESS [id number] Kayce Ravi Secaseyried [id number] Kayce Ravi Seifried 05/23/2024 1 [employer] - [employer]IED BENEFITS - OPEN ACCESS [id number] Kayce Ravi Seifried [id number] Kayce Ravi Seifried 05/30/2024 1 [employer] - [employer]ENEF[employer] - OPEN ACCESS [id number] Kayce Ravi Seifried [id number] Kayce Ravi Secasey Notes Date Note Type Note Provider Name and Address Organization Details Recorded Time 06/26/2023 text/html Pt is a 38 yo fe male request evaluation for [facility] foster care LANA DALE NP Attn: [employer] [place], [address], [facility] 06/26/2023 16:49:22 01/08/2024 text/html ThyroidReported bypatient.Onset/Martinin g:better Context:normal thyroid levels; no history of head or neck radiation during childhood; no history of thyroid disease; no history of hypothyroidism; no history of hyperthyroidism; no excess iron exposure Exercisegets exercise Associated Symptoms:no cold intolerance; no heat intolerance; no weight loss; no weight gain; no double vision; no dry eyes; no hoarseness; no difficulty swallowing; no neck masses; no deepening of the voice; no fast heart rate; no increased blood pressure; no palpitations; no chest pain; no chest tightess or pressure; no constipation; no diarrhea; no vomiting; no decreased appetite; no loose stools; no irregular menstrual periods; no excessive sweating; no joint pain; no numbness; no tingling of the hands or feet; no dry skin; no tremor; no nervousness; no anxiety; no depression; no fatigue; no sleep difficulties; no skin changes; no hair changes 38 y/o wf present today for a medication refill. pt states that she needs refills on her wellbutrin on levothyroxine she states that she is almost out of medication. Pt states that she does have a appointment scheduled soon with a new provider as she recently moved to the area. DELBERT RAIN NP Attn: [employer] [place], [address], [facility] 01/08/2024 15:02:02 05/16/2024 text/html states that she has has cough congestion and feels horrible states that she is getting worse. the depression the thyroid is under control the insomina is under control Garfield Andrews MD Attn: [address] [place], [address], [facility] 05/16/2024 19:30:22 05/23/2024 text/html states that the cough and congestion is improving the sinusitis is better. the thyroid is under control and has been watching her diet. taking her vit d daily Garfield Andrews MD Attn: Accounting, [address] [place], [address], [facility] 05/23/2024 19:07:46 05/30/2024 text/html states that she has pcos and has been having horrible bleeding during htis menstration the thyroid is under control and is taking hte vit d daily is watching her diet. has hte gluten sensivity Garfield Andrews MD Attn: Accounting[address] [place], [address], [facility] 05/30/2024 13:28:07 OBGyn Episode No OBEpisode recorded.
--- OUTSIDE RECORDS SUMMARY | 2024-07-01 08:07 | XMS_ITS | Patient Health Record ---
Author Organization [facility] Address [address] [facility] [address] [place] [address] Care Team Providers Care Dive Supervisor Name Role Phone Alexandra Kaur APN Primary Care Provider Unavailab Tremaine Brown Unavailable [phone] Allergies Allergen (clinical drug ingredient) Drug/Non Drug [...] Problem Status W/U Status Risk Notes Problem 44977336 Severe episode of recurrent major depressive disorder, without psychotic features (F33.2) Active confirmed Problem 41169246 MDD (major depressive disorder), recurrent episode, moderate (F33.1) Active confirmed Problem 64288431 Anxiety (F41.9) Active confirmed Problem 0063686 Passive suicidal ideations (R45.851) Active confirmed Vital Signs Heart Rate 77 /min 02/28/2024 Blood pressure diastolic 74 mm Hg 02/28/2024 Weight-kg 116.3 kg 02/28/2024 Blood pressure systolic 113 mm Hg 02/28/2024 Weight 256.4 lbs 02/28/2024 Encounters Encounter Location Date Provider Diagnosis [employer] [address] [facility] [address] [place] [address] 02/28/2024 Tremaine Club Passive suicidal ideations R45.851 ; Severe episode of recurrent major depressive disorder, without psychotic features F33.2 and Anxiety F41.9 [employer] [address] [facility] [address] [place] [address] 03/29/2024 Tremaine Clubb [employer], [employer] [address] [facility] [address] [place] [address] 05/04/2024 Tremaine [place] Assessments Encounter Date Diagnosis (ICD Code) Assessment Notes Treatment Notes Treatment Clinical Notes Section Notes 02/28/2024 Severe episode of recurrent major depressive disorder, without psychotic features (ICD-10 - F33.2) 1. ADHD, Anxiety, and Depression - Plan: Restart bupropion 150 mg daily. Schedule a follow-up appointment in one month to assess stability. Encourage continuation of therapy sessions every 2-3 weeks with Noelle Paige at [facility] in [place], focusing on cognitive behavioral therapy. Provide crisis hotline number (371) and ensure safety plan is in place, [...] sessions every 2-3 weeks with Noelle gutierrez [facility], focusing on cognitive behavioral therapy. [...] every 2-3 weeks with Noelle Paige [facility], focusing on cognitive behavioral therapy. [...] sessions every 2-3 weeks with Noelle gutierrez [facility], focusing on cognitive behavioral therapy. [...] Date Coverage End Date [employer] [address] [place] [address] [id number] IRINA DENYSYA Self - patient is the [...]
--- OUTSIDE RECORDS SUMMARY | 2024-07-01 08:07 | XMS_ITS | Clinical Summary ---
Author Organization [facility] Address [address] [place] [address] Care Team Providers Care Production Support Specialist Name Role Phone Garfield Andrews MD Primary Care Provider [phone] Allergies Active Allergy Reactions Criticality Noted Date [...] Active Active Problems No known active problems Encounters Date Type Department Care Team Description 06/22/2024 Results Follow-Up [facility] Obstetrical Gynecology [address] [place] [address] [place] [phone] Otoniel Singleton MD 06/19/2024 Results Follow-Up [facility] Obstetrical Gynecology [facility] [address] [place] [address] Otoniel Singleton MD 06/14/2024 12:38 PM SAWMILL SUPERVISOR - 06/14/2024 11:59 PM SAWMILL SUPERVISOR Hospital Encounter [address] [address] Dysfunctional uterine bleeding Discharge Disposition: Discharge to home or self care 06/14/2024 9:30 AM SAWMILL SUPERVISOR Office Visit [facility] Obstetrical Gynecology [address] [facility] [address] [place] [address] Otoniel Singleton MD Dysfunctional uterine bleeding (Primary Dx); PCOS (polycystic ovarian syndrome); Cervical cancer screening 06/14/2024 Telephone [facility] Obstetrical Gynecology [address] [facility] [address] [place] [phone] Otoniel Singleton MD 06/13/2024 9:41 AM SAWMILL SUPERVISOR - 06/13/2024 11:59 PM SAWMILL SUPERVISOR Hospital Encounter [address] [address] Menorrhagia with irregular cycle Discharge Disposition: Discharge to home or self care 05/30/2024 Telephone [facility] Obstetrical Gynecology [address] [place] [address] [place] [phone] Otoniel Singleton MD from Last 3 Months Medical History Medical History Date Comments Anemia Asthma Anxiety and depression High cholesterol Thyroid dysfunction Family History Medical History Relation Name Comments Breast cancer Maternal Grandmother Breast cancer Mother's Sister ADD / ADHD Other Asthma Other Depression Other Diabetes Other Hyperlipidemia Other Hypertension Other Polycystic ovary syndrome Other Relation Name Status Comments Maternal Grandmother Mother's Sister Alive Other Social History Tobacco Use Types Packs/Day Years Used Date Smoking Tobacco: Never Tobacco Cessation:Counseling Given: Not Answered Comments No Sex and Gender Information Value Date Recorded Sex Assigned at Not on file Legal Sex Female 1:16 PM SAWMILL SUPERVISOR Gender Identity Not on file Sexual Orientation Not on file Obstetrics History Para Term AB IAB SAB Ectopic Multiple Livin g Live Births 0 0 0 0 0 0 0 0 0 0 0 Last Filed Vital Signs Vital Sign Reading Time Taken Comments Blood Pressure 124/66 06/14/2024 9:34 AM SAWMILL SUPERVISOR Pulse - - Temperature - - Respiratory Rate - - Oxygen Saturation - - Inhaled Oxygen Concentration - - Weight 111.5 kg (245 lb 12.8 oz) 06/14/2024 9:34 AM SAWMILL SUPERVISOR Height 167.6 cm (5' 6 ) 06/14/2024 9:34 AM SAWMILL SUPERVISOR Body Mass Index 39.67 06/14/2024 9:34 AM SAWMILL SUPERVISOR Plan of Treatment Health Maintenance Due Date Last Done Comments Depression Screening 1987 Hepatitis C Screening 1987 DTaP/Tdap/Td Vaccine (1 - Tdap) 1998 Varicella Vaccines (1 of 2 - 13+ 2-dose series) 2000 Hepatitis B Screening 2005 Regular Well Visit/Exam 18-64 2005 Pneumococcal vaccine <65 (1 of 2 - PCV) 2006 Influenza Vaccine (#1) 2023 Cervical Cancer Screening 06/14/20252024, 06/14/2024 HPV Vaccines Aged Out No longer eligi ble based on patient's age to complete this topic Procedures Procedure Name Priority Date/Time Associated Diagnosis Comments PAP AND HIGH RISK HPV, REFLEX TO GENOTYPING Routine 06/14/2024 10:44 AM SAWMILL SUPERVISOR Dysfunctional uterine bleeding HIGH RISK HPV DNA DETECTION WITH GENOTYPING Routine 06/14/2024 10:44 AM SAWMILL SUPERVISOR Dysfunctional uterine bleeding US PELVIS W ENDOVAGINAL Schedule Routine, Read Routine (OP Routine) 06/13/2024 10:22 AM SAWMILL SUPERVISOR Menorrhagia with irregular cycle from Last 3 Months Results * High Risk HPV DNA Detection with Genotyping (Molecular component) (06/14/2024 10:44 AM SAWMILL SUPERVISOR) HPV HR [address] [facility] Comment:Testing performed by : [facility], [address] [facility] [place]., [address] HPV HR 18 Not Detected Not Detected [facility] Comment:Testing performed by : [facility], [address] [facility] [place]., [address] HPV HR Non 16/18 Not Detected Not Detected [facility] Comment: Interpretive Data Nucleic acid amplification for [...] this test have been verified by the [facility] Molecular Infectious Disease laboratory. Correlate with separately reported cytology results, as applicable. Interpretive data last revised 22 Testing performed by: [facility], [address] [place]., [address] Endocervical 06/14/2024 10:4 4 AM SAWMILL SUPERVISOR 06/15/2024 10:37 AM SAWMILL SUPERVISOR Narrative [facility] - 06/16/2024 12:10 AM SAWMILL SUPERVISOR Clinical history and diagnosis->screen Number of vials->1 Testing type->Screening Last menstrual period (date if known)->05/24/24 Otoniel Singleton MD LAB BODY FLUIDS AND STO OLS ORDERABLES Final Result [facility] [address] [facility] Department [place] [address] [facility] * Pap and High Risk HPV and Genotyping (Cytology Component) (06/14/2024 10:44 AM SAWMILL SUPERVISOR) Thin prep (Pap test) 06/14/2024 10:44 AM SAWMILL SUPERVISOR 06/14/2024 3:51 PM SAWMILL SUPERVISOR Narrative PATHOLOGY [facility] - 06/21/2024 10:56 AM SAWMILL SUPERVISOR EPIC results best viewed via link to PDF [facility] [place] [address] Note to Patients: This report may contain [...] Gender: F : 1985 (Age: 39) Address: [address] [place], [place] [phone] Hospital #: [id number] Service: UNKNOWN Location: Patient Type: [facility] SPECIMEN Taken: 06/14/2024 Received: 06/14/2024 Accessioned: 06/14/2024 [...] this test have been verified by the [facility] Molecular Infectious Disease laboratory. Correlate with reported cytology results, as applicable. Interpretive data last revised 22 This specimen has been rescreened in accordance with this laboratory's Conductor Pullman Program. [facility]/06/21/2024 10:56 Danny Story MS, CT(ASCP)PA Report Electronically Reviewed and Signed Out By [...] clinical information and biopsy results as indicated. [facility] Clinical Laboratory Improvement Amendments (CLIA) mandate that cytologic and histologic results be correlated for laboratory quality control head & improvement standards. FOR ALL HIGH-GRADE CASES [...] determined by the Surgical Pathology Department at [facility] as part of an ongoing environmental quality analyst program and in compliance with federally mandated [...] determined by the Surgical Pathology Department of [facility]. It has not been cleared or approved by the U. S. Food and Drug Administration. Otoniel Singleton MD LAB CYTOLOGY ORDERABLES Final Result PATHOLOG[facility] * US Pelvis W Endovaginal (06/13/2024 10:22 AM SAWMILL SUPERVISOR) Anatomical Region Laterality Modality Pelvis N/A Ultrasound 06/16/2024 4:08 PM SAWMILL SUPERVISOR Narrative 06/16/2024 4:11 PM SAWMILL SUPERVISOR EXAM DESCRIPTION: US PELVIS W ENDOVAGINAL REASON [...] Pam Hernandez M.D. TW T: Report ID: [id number] Reading Location: [place] [address] Procedure Note Pam Hernandez MD - 06/16/2024 [...] - Electronically signed by Pam Hernandez M.D. T: Report ID: [id number] Reading Location: [id number] Otoniel Singleton MD [facility] US PROCEDURES Final Result from Last 3 Months Insurance [employer] OPEN ACCESS Care Teams Production Support Specialist Relationship Specialty Start Date End Date Garfield Andrews MD [address] [place] [address] PCP - General Family Medicine 05/30/24
--- OUTSIDE RECORDS SUMMARY | 2024-07-01 08:07 | XMS_ITS ---
Author Organization [facility] Address [facility] [address] [address] Care Team Providers Care Vocational Instructor Name Role Phone Alexandra Kaur APN Primary Care Provider Tremaine Palmer [phone] REASON FOR VISIT Waiting for call back Social History Sex Assigned At : Social History Observation Description Sex Assigned At Female Encounters Encounter Location Date Provider Diagnosis [facility], [facility] [address] [facility] [address] [place] [address] 05/04/2024 Tremaine Kidd Plan Of Treatment No Information Progress Notes * IRINA DONDOB: 8 (38 yo F)Acc No.[id number]:05/04/2024 Patient: DON SOLITARIO :1985 A ge:38 Y S ex:Female Phone: Address:[address] [place] [address] * true * Date: Generated for Printi ng/Faxing/eTransmitting on: 0 07/01/2024 08:07 AM CDT
--- OUTSIDE RECORDS SUMMARY | 2024-07-01 08:07 | XMS_ITS ---
Author Organization [facility] [employer] [facility] Address [facility] [address] [facility] [address] [place] [address] Care Team Providers Care Vice President Underwriting Name Role Phone Alexandra Kaur APN Primary Care Provider Unavailab Tremaine Brown Unavailable [phone] Medications Medication SIG (Take, Route, Frequency, Duration) [...] Female Encounters Encounter Location Date Provider Diagnosis [facility] [address] [place] [address] [address] [place] [address] 03/29/2024 Tremaine Kidd Plan Of Treatment No Information Progress Notes * IRINA DONDOB: [birth year] (39 yo F)Acc No.[id number]:03/29/2024 Patient: DON SOLITARIO Provider: KIM Sifuentes :1985 A ge:38 Y S ex:Female Date:03/29/2024 Phone: Address:[address] [place] [address] Pcp:Alexandra Kaur APN Subjective: * Chief Complaints: * * Medical History: * Medications: T aking buPROPion HCl ER (XL) 150 MG Tablet Extended [...] TABLET BY MOUTH DAILY Oral Objective: * Vitals: Assessment: Plan: * Treatment: * Billing Information: * Visit Code: * Procedure Codes: * Electronic signature of KIM Thompson on 07/01/2024 at 08:07 AM CDT Sign off status: Pending * Provider: KIM Sifuentes Date: 05/30/2023 Generated for Amber zamarripa/Mohsen/Thad on: 0 07/01/2024 08:07 AM CDT
[2024-07-01 08:15] VITALS: BP 126/68; PULSE 92; RESP 18; TEMP 36.3; O2SAT 98
--- NOTE | 2024-07-01 08:25 | ED_ITS ---
HPI - URI/Sore Throat General Chief Complaint: Upper Respiratory Infection Stated Complaint: cough/sore throat History of Present Illness HPI Narrative: 39-year-old female presents today with complaints of fever for 2 days, cough, congestion, sore throat, increased usage of albuterol that started on Wednesday. Patient does have foster children M1 did come home sick a couple days before that. Patient also about a month prior diagnosis of bronchitis which turned into pneumonia was treated with antibiotics and steroids which led to prolonged period. Patient did have to receive 2 pt of blood it to [facility]. 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 MD elicited complaint: fever, cough, sore throat and rhinorrhea Pertinent past history: pneumonia and asthma Related Data Home Medications ?Medication ?Instructions ?Recorded ?Confirmed ?Last Taken ?Type Warren bergamia PO 02/18/24 02/18/24 Unknown History Full Adarsh Fish OIl PO 02/18/24 02/18/24 Unknown History Sibiotica K-97 PO 02/18/24 02/18/24 Unknown History Zoyava chloe-inositol/ D-chiro PO 02/18/24 02/18/24 Unknown History inositol cholecalciferol (vitamin D3) 25 25 mcg PO DAILY 02/18/24 04/19/24 Unknown History mcg (1,000 unit) capsule cimicifuga racemosa See Rx Instructions PO .COMPLEX 02/18/24 02/18/24 Unknown Hi story levothyroxine 25 mcg tablet 25 mcg PO DAILY 02/18/24 04/19/24 Unknown History melatonin 3 mg capsule 3 mg PO QHS 02/18/24 04/19/24 Unknown History multivitamin 1 tablet PO DAILY 02/18/24 04/19/24 Unknown History bupropion HCl 150 mg 24 hr tablet, 150 mg PO DAILY 04/19/24 04/19/24 Unknown History extended release albuterol sulfate 90 mcg/actuation inhalation 05/06/24 Unknown History aerosol inhaler Allergies Allergy/AdvReac Type Severity Reaction Status Date / Time metformin AdvReac Intermediate Diarrhea Verified 07/01/24 08:15 ON LICENSE OF [facility] Past Medical History Medical History ADHD Allergies Anemia Anxiety Asthma Celiac disease Chronic post-traumatic stress disorder (PTSD) Depression with suicidal ideation Headache, migraine, intractable Polycystic ovarian disease Surgical History Surgical History H/O colonoscopy 2004 [place] teeth removed Family History Family History Mother Depression Anxiety Heart problem Father Asthma Diabetes mellitus Sibling Asthma Grandparent Anxiety Depression Heart problem Cancer Grandparent Diabetes mellitus Grandparent Diabetes mellitus Social History Social History Smoking status: Never smoker Second hand tobacco smoke exposure: Yes Alcohol intake: current Alcohol use details: rarely Substance use: never Do You Feel Safe in your Home?: Yes Lack of Transportation: No Lack of Food: Never True Current Housing: I Have Housing Concerned About Future Housing: No Difficulty Paying Gas/Electric Bills: No Difficulty Paying for Meds: No Currently Unemployed: No Education: Bachelor's Degree Difficulty w/ Childcare or Family Care: No Living arrangements: with family Occupation/Education: occupation Gender identity (if verbalized by the patient): Female Sexual Orientation (if Verbalized by the Patient): Straight or Heterosexual Agree to blood products: Yes Course Course Level of Care: Express Care Visit Vital Signs Vital signs: Vital Signs Temperature 97.4 F L 07/01/24 08:15 Pulse Rate 92 07/01/24 08:15 Respiratory Rate 18 07/01/24 08:15 Blood Pressure 126/68 07/01/24 08:15 Pulse Oximetry 98 07/01/24 08:15 Oxygen Delivery Room Air 07/01/24 08:15 Temperature 97.4 F L 07/01/24 08:15 Pulse Rate 92 07/01/24 08:15 Respiratory Rate 18 07/01/24 08:15 Blood Pressure 126/68 07/01/24 08:15 Pulse Oximetry 98 07/01/24 08:15 Oxygen Delivery Room Air 07/01/24 08:15 MDM - URI/Sore Throat MDM Narrative Medical decision making narrative: 39-year-old female HPI is noted. Differentials include but not limited to upper respiratory tract infection, influenza, bronchitis, COVID, viral infection. Chest x-ray to rule out pneumonia which came back with no acute findings. COVID influenza and strep all negative. Suspect viral illness at this time. Patient does not want steroids that she has had bad experience will treat symptoms. Differential Diagnosis Differential diagnosis: Likely upper respiratory infection, viral infection and influenza Medical Records Attestation: I reviewed the patient's medical records. Lab Data Labs: Lab Results 07/01/24 07/01/24 Range/Units 08:44 08:46 POC Influenza A Ag Negative (Negative) POC Influenza B Ag Negative (Negative) POC SARS CoV-2 Ag Negative (Negative) POC Grp A Strep Screen Negative (Negative) Imaging Data Attestation: I personally reviewed and interpreted this imaging study as follows: Radiologist's impression: Impressions Chest X-Ray 07/01/24 08:42 Impression: Normal chest. Discharge Plan Discharge Clinical Impression: Viral respiratory illness Patient Disposition: Home, Self-Care Condition: Stable Instructions: Antibiotic Form Additional Instructions: Her chest x-ray showed no pneumonia or acute findings today. Influenza COVID and strep were all negative. He have a viral illness that will treat the symptoms as such. Use [id number] Flonase 2 sprays each nostril daily. Benzonatate as prescribed. Tylenol and/or ibuprofen for pain or fever. Patient Language: Montenegrin Prescriptions: New benzonatate 100 mg capsule See Rx Instructions .ROUTE .COMPLEX PRN (Reason: cough) Qty: 30 0RF Rx Instructions: 1-2 capsules three times a day as needed for cough fluticasone propionate [Flonase Allergy Relief] 50 mcg/actuation spray,suspension 2 spray intranasal DAILY Qty: 16 0RF Rx Instructions: administer into each nostril No Action bupropion HCl 150 mg tablet extended release 24 hr 150 mg PO DAILY albuterol sulfate 90 mcg/actuation HFA aerosol inhaler INHALATION levothyroxine 25 mcg tablet 25 mcg PO DAILY cimicifuga racemosa See Rx Instructions PO .COMPLEX Rx Instructions: 300mg PRN orally; PCOS & Sugar Cravings multivitamin Tablet 1 tablet PO DAILY Warren bergamia PO Rx Instructions: bergamot 500mg, BioPerine 2.5mg for PCOS & Insulin Resistance with water or herbal tea at dinner time. Full Adarsh Fish OIl PO Rx Instructions: 2500mg QHS melatonin 3 mg capsule 3 mg PO QHS Sibiotica K-97 PO Rx Instructions: 15 billion x 2 tabs daily Zoyava chloe-inositol/ D-chiro inositol PO Rx Instructions: 750mg/50mg cholecalciferol (vitamin D3) 25 mcg (1,000 unit) capsule 25 mcg PO DAILY montelukast 10 mg tablet See Rx Instructions .ROUTE .COMPLEX Qty: 30 0RF Dose Instruction: TAKE 1 TABLET BY MOUTH DAILY Rx Instructions: TAKE 1 TABLET BY MOUTH DAILY Follow-up/Referrals: Darryl,Garfield Goins MD [Primary Care Provider] - Time of Disposition: 08:58
[2024-07-01 08:47] LABS: EDSTREPNEGPOS1 Negative (Negative)
[2024-07-01 08:47] LABS: EDCOVIDSCREEN Negative (Negative); EDINFLUASCREEN Negative (Negative); EDINFLUBSCREEN Negative (Negative)
== END 2024-07-01 09:06 | disposition home or self-care (01) ==
PROVIDERS: Emergency Provider Nurse Practitioner Family; PCP Family Medicine
DX: J06.9 Acute upper respiratory infection, unspecified (principal); Z20.822 Contact with and (suspected) exposure to COVID-19; J45.909 Unspecified asthma, uncomplicated; K90.0 Celiac disease; E28.2 Polycystic ovarian syndrome; F41.9 Anxiety disorder, unspecified; F32.A Depression, unspecified
CPT/HCPCS: 71046; 87081; 87426; 87804; 87880; 99213; G0463